=== PATIENT | female | born 1965 | race Asian ===

== ENCOUNTER → 2018-07-06 12:36 | Outpatient (CLI) | payer OTHER, SELFPAY ==
--- NOTE | 2018-07-06 | DI.MG.S_ITS ---
BILATERAL DIGITAL SCREENING MAMMOGRAM 3D/2D WITH CAD: 07/06/2018 CLINICAL: Routine screening. Comparison is made to exams dated: 05/15/2015 mammogram - [facility], 02/21/2013 mammogram, and 06/06/2011 mammogram - [facility]. The tissue of both breasts is heterogeneously dense. This may lower the sensitivity of mammography. Current study was also evaluated with a Computer Aided Detection (CAD) system. No significant masses, calcifications, or other findings are seen in either breast. There has been no significant interval change. IMPRESSION: NEGATIVE There is no mammographic evidence of malignancy. A 1 year screening mammogram is recommended.(07/07/2019) This exam was interpreted at Station ID: [id number]. NOTE: For mammograms, a report in lay terms will be sent to the patient. Approximately 15% of breast malignancies will not be visualized mammographically. In the management of a palpable breast mass, a negative mammogram must not discourage biopsy of a clinically suspicious lesion. Electronically Signed By: Kristy iqbal/lane:07/06/2018 14:17:12 letter sent: Normal Exam ACR BI-RADS Category 1: Negative 3341F
== END ==
PROVIDERS: Family Provider Physician Assistant; PCP Physician Assistant; Visit Provider Family Medicine
DX: Z12.31 Encounter for screening mammogram for malignant neoplasm of breast (principal)
CPT/HCPCS: 77063; 77067

== ENCOUNTER → 2019-12-13 11:16 | Outpatient (CLI) | payer OTHER, SELFPAY ==
--- NOTE | 2019-12-13 11:20 | DI.MG.S_ITS ---
BILATERAL DIGITAL SCREENING MAMMOGRAM 3D/2D WITH CAD: 12/13/2019 CLINICAL: Routine screening. Comparison is made to exams dated: 07/06/2018 mammogram, 05/15/2015 mammogram - [facility], and 02/21/2013 mammogram - [facility]. The tissue of both breasts is heterogeneously dense. This may lower the sensitivity of mammography. Current study was also evaluated with a Computer Aided Detection (CAD) system. No significant masses, calcifications, or other findings are seen in either breast. There has been no significant interval change. IMPRESSION: NEGATIVE There is no mammographic evidence of malignancy. A 1 year screening mammogram is recommended. This exam was interpreted at Station ID: [id number]. NOTE: For mammograms, a report in lay terms will be sent to the patient. Approximately 15% of breast malignancies will not be visualized mammographically. In the management of a palpable breast mass, a negative mammogram must not discourage biopsy of a clinically suspicious lesion. Electronically Signed By: Nirav preciado/lane:12/13/2019 14:34:28 letter sent: Normal Exam ACR BI-RADS Category 1: Negative 3341F
--- NOTE | 2019-12-13 11:20 | DI.US.S_ITS ---
PROCEDURE: US THYROID INDICATIONS: ROUTINE SCREENING HYPOTHYROID TECHNIQUE: Real-time scanning was performed of the thyroid gland, with image documentation. COMPARISON: None. FINDINGS: Right: Prior right thyroidectomy Left: Thyroid lobe measures 4.9 x 1.5 x 1.7 cm, and is homogenous in echotexture. Colloid cyst measuring 5 mm. Isthmus: 2.5 mm thick. IMPRESSION: Right thyroidectomy and colloid cyst involving the left thyroid. Dictated by: Eber ZIMMERMAN Interpreted: Lisandra Caldwell MD on 12/13/2019 at 16:49 Approved by: Carlos Preciado M.D. on 12/16/2019 at 15:57
== END ==
PROVIDERS: Family Provider Physician Assistant; PCP Family Medicine; Referring Provider Family Medicine; Visit Provider Family Medicine
DX: Z12.31 Encounter for screening mammogram for malignant neoplasm of breast (principal); Z13.29 Encounter for screening for other suspected endocrine disorder; E04.1 Nontoxic single thyroid nodule; E03.9 Hypothyroidism, unspecified
CPT/HCPCS: 76536; 77063; 77067

== ENCOUNTER → 2020-08-20 08:50 | Outpatient (CLI) | payer OTHER, SELFPAY ==
--- NOTE | 2020-08-20 | DI.US.S_ITS ---
PROCEDURE: US ABDOMEN COMPLETE INDICATIONS: PAIN TECHNIQUE: Real-time scanning was performed of the abdominal and retroperitoneal organs, with image documentation. COMPARISON: None. FINDINGS: Liver: Liver is normal in size. There is an 11 mm echogenic nonvascular focus seen involving the right lobe of the liver. Gallbladder: No findings of gallstones or sludge are seen. The gallbladder wall is not thickened, measuring 3 mm or less. No specific pericholecystic fluid is seen. The sonographic Melgar sign is negative. Biliary ducts: Intrahepatic bile ducts are non-dilated. Extrahepatic bile duct caliber measures 7 mm. Normal is 6-7 mm or less in diameter, or 10 mm or less post-cholecystectomy. Pancreas: Visualized portions of the pancreas are sonographically normal. Spleen: Spleen is normal in size and homogeneous in echotexture. Kidneys: Kidneys are normal in size and echotexture. Right kidney measures 10.1 cm long; left kidney measures 12 cm long. No hydronephrosis or nephrolithiasis. No solid masses. The renal cortex measures within normal limits for thickness. Aorta: Visualized aorta is normal in caliber at less than 3 cm. Iliacs: Proximal common iliac arteries are normal in caliber at less than 2.5 cm. IVC: Intrahepatic inferior vena cava is patent. Miscellaneous: No free abdominal fluid. IMPRESSION: No imaging explanation is found for this patient's presenting symptoms. The gallbladder demonstrates a normal sonographic appearance. No biliary dilatation is seen. 11 mm presumed liver hemangioma incidentally noted. Dictated by: Jak Alonzo M.D. on 08/20/2020 at 10:25 Approved by: Jak Alonzo M.D. on 08/20/2020 at 10:26
== END ==
PROVIDERS: Family Provider Physician Assistant; PCP Family Medicine; Referring Provider Family Medicine; Visit Provider Family Medicine
DX: R10.9 Unspecified abdominal pain (principal)
CPT/HCPCS: 76700

== ENCOUNTER → 2020-09-22 16:25 | Outpatient (CLI) | payer OTHER, SELFPAY ==
[2020-09-22 17:14] LABS: Add Manual Diff / Slide Review NO; Basophils Absolute Auto 0 /uL (0-100); Basophils Percent Auto 0.4 % (0-2); Eosinophils Absolute Auto 100 /uL (0-450); Hematocrit 42.2 % (36-46); Hemoglobin 13.9 g/dL (12.0-16.0); Lymphocytes Absolute Auto 3100 /uL (1100-4500); Lymphocytes Percent Auto 41.4 % (25-40); Mean Corpuscular Hemoglobin 30.7 PG (26-34); Mean Corpuscular Volume 93.1 fL (80-100); Monocytes Absolute Auto 500 /uL (0-900); Monocytes Percent Auto 6.5 % (3-14); Neutrophils Absolute Auto 3800 /uL (1500-7000); Neutrophils Percent Auto 50.7 % (50-75); Platelet Count 280 X10^3/uL (150-400); Red Blood Cell Count 4.53 X10^6/uL (4.0-5.2); Red Cell Distribution Width 14.2 % (11.6-14.8); White Blood Cell Count 7.5 X10^3/uL (4.5-11.0)
[2020-09-22 17:26] LABS: Hemoglobin A1C% w Est Avg Glu 6.3 % (4.0-6.0)
[2020-09-22 17:31] LABS: Alanine Aminotransferase 37 IU/L (<35); Albumin 4.6 g/dL (3.5-5.0); Albumin Globulin Ratio 1.3 (1.0-2.8); Alkaline Phosphatase 82 U/L (38-126); Amylase 97 U/L (30-110); Aspartate Aminotransferase 45 IU/L (14-36); BUN Creatinine Ratio 30.4 (6-22); Bilirubin Total 0.3 mg/dL (0.2-1.3); Blood Urea Nitrogen 24 mg/dL (7-17); Calcium 9.3 mg/dL (8.4-10.2); Carbon Dioxide 34 mmol/L (22-32); Chloride 99 mmol/L (98-107); Estimated Glomerular Filt Rate > 60.0 mL/min (>60); Globulin 3.5 g/dL (1.7-4.1); Glucose 110 mg/dL (70-100); HEMOLYSIS < 15 (0-50); Lipase 148 U/L (23-300); Potassium 3.9 mmol/L (3.4-5.1); Sodium 138 mmol/L (137-145); Total Protein 8.1 g/dL (6.3-8.2)
[2020-09-22 17:33] LABS: C-Reactive Protein Quant < 0.5 mg/dL (<1.0)
[2020-09-22 17:51] LABS: Free T4, Direct Thyroxine 0.44 ng/dL (0.78-2.19)
== END ==
PROVIDERS: Family Provider Physician Assistant; PCP Family Medicine; Referring Provider Family Medicine; Visit Provider Family Medicine
DX: R19.7 Diarrhea, unspecified (principal); R10.9 Unspecified abdominal pain
CPT/HCPCS: 36415; 80053; 82150; 83036; 83690; 84439; 84443; 85025; 86140

== ENCOUNTER → 2020-10-29 13:24 | Outpatient (CLI) | payer OTHER, SELFPAY ==
[2020-10-29 15:59] LABS: COVID19 -Nasal RAPID Negative (Negative)
== END ==
PROVIDERS: Family Provider Physician Assistant; PCP Family Medicine; Visit Provider Surgery
DX: Z20.822 Contact with and (suspected) exposure to COVID-19 (principal); Z01.812 Encounter for preprocedural laboratory examination
CPT/HCPCS: 87635; C9803

== ENCOUNTER 2020-10-30 08:04 | Day surgery (SDC) | payer OTHER, SELFPAY ==
[2020-10-30] MEDS: SODIUM CHLORIDE 0.9% 1,000 ML 200 ML IV (08:18)
[2020-10-30 08:29] VITALS: BP 132/74; PULSE 63; RESP 13; TEMP 36.9; O2SAT 99; BMI 23.8
--- NOTE | 2020-10-30 09:23 | PM.HP.1 ---
History of Present Illness History of Present Illness Date Patient Seen: 10/30/20 Time Patient Seen: 09:23 Chief complaint: SCREENING COLONOSCOPY Narrative: This is a 55-year-old woman with chronic diarrhea, with never had a colonoscopy before. She denies any melena, hematochezia. She does have some crampy abdominal pain bloating. She denies any personal or family history of colon polyps or colon cancers. ROS: Positive for constipation, nausea, bloating, cramping, diarrhea. Thirteen system review is otherwise negative other than as mentioned below and in HPI. PE: GENERAL: Well groomed and cooperative. Appears stated age. Answers questions promptly and appropriately. Vital signs noted. HENT: Normocephalic, atraumatic. Hearing intact. EYES: Conjunctiva pink, sclera white, no periorbital swelling. CARDIOVASCULAR: Regular rate. No pedal edema. RESPIRATORY: Non-tachypneic, breathing comfortably on room air. GASTROINTESTINAL: Abdomen soft and non-distended GENITALURINARY: No flank tenderness. MUSCULOSKELETAL: Equal tone and mass bilaterally. SKIN: Warm, dry, soft, appropriate color for ethnicity. No other lesions, rashes, or wounds. NEURO: Alert and Oriented X 3. No gross sensory deficits, or cognitive issues. PSYCH: Appropriate affect and mood. Patient History Medical History Hypothyroidism Shoulder pain Stomach pain Wears dentures Wears glasses Family & Social History Social History: household members spouse Tobacco & Substance use: Smoking Status Never smoker alcohol intake current alcohol intake frequency holiday/special occasion Substance Use Type does not use Meds Home Medications and Allergies Home Medications Medication Instructions Recorded Confirmed Type levothyroxine 25 mcg PO DAILY 10/30/20 10/30/20 History omeprazole 40 mg PO DAILY 10/30/20 10/30/20 History Allergies Allergy/AdvReac Type Severity Reaction Status Date / Time cephalexin Allergy Intermediate Rash Verified 10/30/20 08:19 Exam Vital Signs (past 8 hours): - 10/30/20 08:29 Temperature 98.4 F Pulse Rate 63 Respiratory Rate 13 Blood Pressure 132/74 Pulse Oximetry 99 Oxygen Delivery Method Room Air Assessment & Plan Assessment and plan (1) Abdominal pain: Status: Acute (2) Change in bowel habits: Status: Acute (3) At average risk for colon cancer: Status: Acute Assessment & Plan narrative: Risks and benefits of screening colonoscopy and possible polypectomy were discussed with the patient including risk of bleeding, perforation, need for additional procedures, risks of anesthesia. The patient desires to proceed with the colonoscopy procedure. COVID-19 COVID-19 status: Negative Result date/Date tested (Pos, Neg/Pending): 10/29/20 Time Spent With Patient Time with patient: 15-24 minutes Quality VTE Deep Vein Thrombosis/Pulmonary Embolism Present on Admission: No
--- NOTE | 2020-10-30 09:27 | P.OP.ENDO_ITS ---
Operative Date/Time/Diagnoses Date of procedure: 10/30/20 Time of procedure: 09:27 Pre-op diagnosis: Bloating, cramping, abdominal pain, change in bowel habit, never had a screening colonoscopy Post-op diagnosis: other (Extensive diverticulosis from the sigmoid colon to the cecum, with some impacted stool within the diverticula. No polyps. No signs of active diverticulitis) Procedure & Clinicians Study performed: Colonoscopy Procedural sedation performed by the endoscopist Indications: Crampy abdominal pain, change in bowel habit Surgeon: Ginna Charles Procedure Notes SCOAP/Timeout: Performed Procedure in detail: The patient was brought to the room and placed in left lateral decubitus position with all bony prominences padded. A time-out was performed and then the patient was given procedural sedation starting with 4 mg of Versed and 100 mcg of fentanyl. Vitals were monitored throughout the procedure and remained stable. Once adequately sedated, the procedure was begun. A rectal exam was performed revealing no abnormalities. The colonoscope was then introduced to the rectum and advanced to the cecum in the usual fashion. The cecum was identified by the appendiceal orifice, the mucosal tri- fold, and the ileocecal valve. The prep was adequate. The scope was then retracted while rotating side to side and examining each mucosal fold. The patient had extensive Diverticulosis from the cecum to the rectosigmoid junction, with many diverticula found to be impacted with stool. At the conclusion of the procedure retroflexion was performed and small grade 1-2 internal hemorrhoids without stigmata of bleeding were seen. The scope was then withdrawn from the rectum the procedure was concluded. The patient tolerated the procedure well and was transferred to the PACU in stable condition. Scope withdrawal time: 8 Sedation minutes: 15 Findings: diverticulosis (Extensive, with impacted stool in many diverticula) Specimen(s): none sent Complications: none Impression: This patient needs a daily fiber supplement Post-procedure Recommendations: Colonscopy in 5 years Follow up: as needed (The patient verbalized her expectation that she would have an EGD and colonoscopy today. She was not referred for EGD, or scheduled for that. I told the patient that she would need to come in to clinic for discussion and evaluation prior to EGD, if EGD is desired by the patient and her PCP.) Disposition: PACU
[2020-10-30] MEDS: fentaNYL 250 MCG/5 ML INJ IV (09:30)
[2020-10-30] MEDS: MIDAZOLAM 5 MG/5 ML VIAL IV (09:33)
[2020-10-30 09:49] VITALS: BP 107/51; PULSE 56; RESP 12; TEMP 36.3; O2SAT 97
[2020-10-30 09:54] VITALS: BP 94/44; PULSE 54; RESP 16; O2SAT 98
[2020-10-30 09:59] VITALS: BP 98/47; PULSE 53; RESP 14; O2SAT 97
[2020-10-30 10:05] VITALS: BP 132/51; PULSE 67; RESP 16; O2SAT 99
[2020-10-30 10:10] VITALS: BP 118/60; PULSE 64; RESP 16; TEMP 36.3; O2SAT 100
== END 2020-10-30 10:20 | disposition home or self-care (01) ==
PROVIDERS: Family Provider Physician Assistant; PCP Family Medicine; Referring Provider Family Medicine; Visit Provider Surgery
PROC: 0DJD8ZZ Inspection of Lower Intestinal Tract, Via Natural or Artificial Opening Endoscopic (ICD-10-PCS; CPT 45378; principal; 2020-10-30 09:15)
DX: R10.9 Unspecified abdominal pain (principal); R19.4 Change in bowel habit; R14.0 Abdominal distension (gaseous); K57.30 Diverticulosis of large intestine without perforation or abscess without bleeding; K64.0 First degree hemorrhoids
CPT/HCPCS: 45378; 99152; J2250; J3010

== ENCOUNTER 2020-10-31 13:57 | Emergency (ER) | payer OTHER, SELFPAY ==
[2020-10-31] VITALS (8 sets, daily range): BP systolic 133–215; BP diastolic 63–109; PULSE 80–110; RESP 16–18; TEMP 37.3; O2SAT 96–100; BMI 23.8
--- NOTE | 2020-10-31 14:16 | DI.CT.S_ITS ---
PROCEDURE: CT ABDOMEN PELVIS W CON INDICATIONS: LUQ, lower diffuse abd pain post colonoscopy TECHNIQUE: After the administration of intravenous contrast, 5 mm thick sections acquired from the diaphragm to the symphysis. 5 mm coronal and sagittal reformats were acquired. For radiation dose reduction, the following was used: automated exposure control, adjustment of mA and/or kV according to patient size. COMPARISON: [facility], , ABDOMEN COMPLETE, 08/20/2020, 9:07. FINDINGS: Image quality: Excellent. ABDOMEN: Lung bases: Lung bases are clear. Heart size is normal. Solid organs: Liver is normal in size and enhancement. Gallbladder is decompressed, otherwise unremarkable. Biliary system is non dilated. Pancreas enhances normally. Spleen is normal in size and enhancement. No adrenal nodules. Kidneys demonstrate normal size and enhancement, without hydronephrosis. Peritoneum and bowel: Stomach and small bowel are unremarkable. Neck is is normal. No evidence of obstructing. Multiple left-sided diverticula. There is subtle inflammation along the left pericolic gutter adjacent to multiple diverticula. No significant wall thickening. No ascites or pneumoperitoneum. Nodes and vessels: No retroperitoneal or mesenteric adenopathy by size criteria. Aorta and inferior vena cava are normal in size. Miscellaneous: No ventral hernias. PELVIS: Genitourinary: Bladder wall thickness is normal. Miscellaneous: No inguinal hernias or adenopathy. Bones: No suspicious bony lesions. No vertebral body compression fractures. IMPRESSION: Sigmoid diverticula. Trace amount of inflammation along the left pericolic gutter suggestive of early diverticulitis. No evidence of complication. Dictated by: Germain Elmore D.O. on 10/31/2020 at 14:36 Approved by: Germain Elmore D.O. on 10/31/2020 at 14:41
[2020-10-31] MEDS: SODIUM CHLORIDE 0.9% 1,000 ML 1000 ML IV (14:23)
--- NOTE | 2020-10-31 14:30 | ED.ABDPAIN ---
HPI - Abdominal Pain <BARB Holly - Last Filed: 10/31/20 16:02> General Chief Complaint: Abdominal Pain Stated Complaint: pain on left side of stomach/ Time Seen by Provider: 10/31/20 14:03 Source: patient Mode of arrival: Ambulatory History of Present Illness HPI narrative: 55yo female presents to the emergency department for abdominal pain and 2 episodes of vomiting that started a few hours ago. She had a colonoscopy yesterday with Dr. Charles, patient reports this was ordered by her doctor for intermittent abdominal pain with diarrhea alternating with constipation for approximately month. Patient felt fine this morning, was in the injury. However few hours ago she developed left upper quadrant and diffuse lower abdominal pain was 2 episodes of vomiting. She states this pain is different from her previous pain. She does not feel nauseated at this time. She denies any blood in vomit, denies diarrhea. Patient denies any chest pain, shortness of breath, fevers, cough, or any other concerns. Related Data Home Medications Medication Instructions Recorded Confirmed levothyroxine 25 mcg PO DAILY 10/30/20 10/30/20 omeprazole 40 mg PO DAILY 10/30/20 10/30/20 Previous Rx's Medication Instructions Recorded amoxicillin-pot clavulanate 1 tab PO BID 7 Days #14 tab 10/31/20 [Augmentin] ondansetron 4 mg PO Q6H PRN #14 tab 10/31/20 Allergies Allergy/AdvReac Type Severity Reaction Status Date / Time cephalexin Allergy Intermediate Rash Verified 10/31/20 14:06 Review of Systems <BARB Holly - Last Filed: 10/31/20 16:02> Review of Systems Narrative: REVIEW OF SYSTEMS: GENERAL: Denies fever. HENT: No head trauma. CARDIOVASCULAR: No chest pain. RESPIRATORY: No shortness of breath or cough. GASTROINTESTINAL: Complains of abdominal pain, see HPI GENITOURINARY: No flank pain. MUSCULOSKELETAL: No pain, weakness, or trauma. INTEGUMENTARY: No rash. Patient History <BARB Holly - Last Filed: 10/31/20 16:02> Medical History Hypothyroidism Shoulder pain Stomach pain Wears dentures Wears glasses Social History household members: spouse Smoking Status: Never smoker alcohol intake: current Smoking Status: Never smoker alcohol intake frequency: holidays/special occasions only Substance Use Type: does not use Exam <BARB Holly - Last Filed: 10/31/20 16:02> Initial Vital Signs Initial Vital Signs: Vital Signs Temperature 99.1 F 10/31/20 14:04 Pulse Rate 109 H 10/31/20 14:04 Respiratory Rate 16 10/31/20 14:04 Blood Pressure 215/109 H 10/31/20 14:04 Pulse Oximetry 100 10/31/20 14:04 PHYSICAL EXAMINATION: GENERAL: Awake and alert. HENT: Normocephalic, atraumatic. Hearing intact. Oral mucosa is pink and moist. EYES: Conjunctiva pink, sclera white, no periorbital swelling. CARDIOVASCULAR: S1 and S2 sounds normal. Regular rate and rhythm, no murmurs, clicks, or bruits. No pedal edema. RESPIRATORY: Normal respiratory rate, trachea midline, airway patent. No stridor, nasal flaring or accessory muscle use. Lungs are clear in all moe without wheeze, rhonchi, or crackles. GASTROINTESTINAL: Bowel sounds normoactive. Abdomen soft, tenderness to left upper quadrant and lower right and left quadrants. No organomegaly, no palpable masses. MUSCULOSKELETAL: Normal gait and coordination. Equal tone and mass bilaterally. EXTREMITIES: CMS intact. SKIN: Warm, dry, soft, appropriate color for ethnicity. No lesions, rashes, or wounds to visualized areas. NEURO: Alert and Oriented X 3. Good coordination. No ataxia, or sensory deficits, or cognitive issues. PSYCH: Appropriate affect and mood. <Pancho Larson DO - Last Filed: 10/31/20 16:14> Initial Vital Signs Initial Vital Signs: Vital Signs Temperature 99.1 F 10/31/20 14:04 Pulse Rate 109 H 10/31/20 14:04 Respiratory Rate 16 10/31/20 14:04 Blood Pressure 215/109 H 10/31/20 14:04 Pulse Oximetry 100 10/31/20 14:04 Scores <BARB Holly - Last Filed: 10/31/20 16:02> qSOFA Altered Mental Status (GCS <15): No Respiratory rate greater than/equal to 22: No Systolic blood pressure less than or equal to 100: No qSOFA Total: 0 0-1 Not High Risk 1-3 High risk Course <BARB Holly - Last Filed: 10/31/20 16:02> Orders Ordered: ED Orders 10/31/20 14:10 Complete Blood Count AUTO DIFF Stat Comprehensive Metabolic Panel Stat Lactate (Lactic Acid) Stat Lipase Stat Procalcitonin Stat 10/31/20 14:16 CT abdomen pelvis w con Stat Discontinued Medications Sodium Chloride (Normal Saline 0.9%) 1,000 mls @ 1,000 mls/hr IV BOLUS ONE Stop: 10/31/20 15:15 Last Infusion: 10/31/20 15:43 Dose: 0 mls/hr Documented by: Admin: 10/31/20 14:23 Dose: 1,000 mls/hr Documented by: MMINOR Consultations Consultation #1: Patient staffed with Dr. Larson discussed test, tests results, and plan of care. Vital Signs Vital signs: Vital Signs - 8 hr 10/31/20 14:04 10/31/20 14:29 10/31/20 14:30 Temperature 99.1 F Pulse Rate 109 H 102 H Respiratory Rate 16 18 Blood Pressure 215/109 H 195/93 H Pulse Oximetry 100 100 100 10/31/20 15:05 10/31/20 15:06 10/31/20 15:30 Temperature Pulse Rate 110 H 99 H 90 Respiratory Rate 16 18 Blood Pressure 165/77 H 143/65 H Pulse Oximetry 96 99 97 10/31/20 15:42 10/31/20 16:00 Temperature Pulse Rate 88 80 Respiratory Rate 16 16 Blood Pressure 146/67 H 133/63 Pulse Oximetry 98 97 <Pancho Larson DO - Last Filed: 10/31/20 16:14> Orders Ordered: ED Orders 10/31/20 14:10 Complete Blood Count AUTO DIFF Stat Comprehensive Metabolic Panel Stat Lactate (Lactic Acid) Stat Lipase Stat Procalcitonin Stat 10/31/20 14:16 CT abdomen pelvis w con Stat Discontinued Medications Sodium Chloride (Normal Saline 0.9%) 1,000 mls @ 1,000 mls/hr IV BOLUS ONE Stop: 10/31/20 15:15 Last Infusion: 10/31/20 15:43 Dose: 0 mls/hr Documented by: Admin: 10/31/20 14:23 Dose: 1,000 mls/hr Documented by: MMINOR Vital Signs Vital signs: Vital Signs - 8 hr 10/31/20 14:04 10/31/20 14:29 10/31/20 14:30 Temperature 99.1 F Pulse Rate 109 H 102 H Respiratory Rate 16 18 Blood Pressure 215/109 H 195/93 H Pulse Oximetry 100 100 100 10/31/20 15:05 10/31/20 15:06 10/31/20 15:30 Temperature Pulse Rate 110 H 99 H 90 Respiratory Rate 16 18 Blood Pressure 165/77 H 143/65 H Pulse Oximetry 96 99 97 10/31/20 15:42 10/31/20 16:00 Temperature Pulse Rate 88 80 Respiratory Rate 16 16 Blood Pressure 146/67 H 133/63 Pulse Oximetry 98 97 MDM - Abdominal Pain <BARB Holly - Last Filed: 10/31/20 16:02> Medical Records Attestation: I reviewed the patient's medical records. Lab Data Attestation: I reviewed the patient's lab results. Result diagrams: 10/31/20 14:10 10/31/20 14:10 Labs: Lab Results 10/31/20 10/31/20 10/31/20 Range/Units 14:10 14:10 14:10 WBC 8.4 (4.5-11.0) X10^3/uL RBC 4.95 (4.0-5.2) X10^6/uL Hgb 15.0 (12.0-16.0) g/dL Hct 45.6 (36-46) % MCV 92.2 (80-100) fL MCH 30.3 (26-34) PG MCHC 32.9 (30-36) % RDW 13.3 (11.6-14.8) % Plt Count 314 (150-400) X10^3/uL Neut % (Auto) 52.6 (50-75) % Lymph % (Auto) 39.8 (25-40) % [place] % (Auto) 5.8 (3-14) % Eos % (Auto) 1.3 L (2-4) % Baso % (Auto) 0.5 (0-2) % Neut # (Auto) 4400 (4706-5418) /uL Lymph # (Auto) 3300 (7972-9552) /uL [place] # (Auto) 500 (0-900) /uL Eos # (Auto) 100 (0-450) /uL Baso # (Auto) 0 (0-100) /uL Sodium 143 (137-145) mmol/L Potassium 3.9 (3.4-5.1) mmol/L Chloride 102 (98-107) mmol/L Carbon Dioxide 33 H (22-32) mmol/L BUN 17 (7-17) mg/dL Creatinine 0.77 (0.52-1.04) mg/dL Estimated GFR > 60.0 (>60) mL/min BUN/Creatinine Ratio 22.1 H (6-22) Glucose 114 H (70-100) mg/dL Lactate (0.7-2.1) mmol/L Calcium 9.6 (8.4-10.2) mg/dL Total Bilirubin 0.2 (0.2-1.3) mg/dL AST 61 H (14-36) IU/L ALT 44 H (<35) IU/L Alkaline Phosphatase 106 (38-126) U/L Total Protein 8.9 H (6.3-8.2) g/dL Albumin 5.0 (3.5-5.0) g/dL Globulin 3.9 (1.7-4.1) g/dL Albumin/Globulin Ratio 1.3 (1.0-2.8) Lipase 194 (23-300) U/L Procalcitonin < 0.05 (<0.5) ng/mL 10/31/20 Range/Units 14:10 WBC (4.5-11.0) X10^3/uL RBC (4.0-5.2) X10^6/uL Hgb (12.0-16.0) g/dL Hct (36-46) % MCV (80-100) fL MCH (26-34) PG MCHC (30-36) % RDW (11.6-14.8) % Plt Count (150-400) X10^3/uL Neut % (Auto) (50-75) % Lymph % (Auto) (25-40) % [place] % (Auto) (3-14) % Eos % (Auto) (2-4) % Baso % (Auto) (0-2) % Neut # (Auto) (5222-3188) /uL Lymph # (Auto) (7889-6552) /uL [place] # (Auto) (0-900) /uL Eos # (Auto) (0-450) /uL Baso # (Auto) (0-100) /uL Sodium (137-145) mmol/L Potassium (3.4-5.1) mmol/L Chloride (98-107) mmol/L Carbon Dioxide (22-32) mmol/L BUN (7-17) mg/dL Creatinine (0.52-1.04) mg/dL Estimated GFR (>60) mL/min BUN/Creatinine Ratio (6-22) Glucose (70-100) mg/dL Lactate 2.0 (0.7-2.1) mmol/L Calcium (8.4-10.2) mg/dL Total Bilirubin (0.2-1.3) mg/dL AST (14-36) IU/L ALT (<35) IU/L Alkaline Phosphatase (38-126) U/L Total Protein (6.3-8.2) g/dL Albumin (3.5-5.0) g/dL Globulin (1.7-4.1) g/dL Albumin/Globulin Ratio (1.0-2.8) Lipase (23-300) U/L Procalcitonin (<0.5) ng/mL Point of care testing: Urine Dip Bedside Urine Glucose Negative Bedside Urine Bilirubin - Negative Bedside Urine Ketone - Negative Urine Specific [place] 1.010 Bedside Urine Occult Blood - Negative Bedside Urine pH 6 Bedside Urine Protein - Negative Bedside Urine Urobilinogen - Negative Bedside Urine Nitrite - Negative Bedside Urine Leukocytes - Negative Esterase Imaging Data CT scan - abdomen/pelvis: Radiologist's Impression: [address] [id number] Scan ReportSigned Patient: Wendy Garcia OMR#: [id number]: [id number]:[id number]/Sex: 55 / FDate of Service: 10/31/20Loc: EDAccession Number: [id number] Procedure: CT abdomen pelvis w con Ordering Provider: Brigida Davis PROCEDURE: CT ABDOMEN PELVIS W CON INDICATIONS: LUQ, lower diffuse abd pain post colonoscopy TECHNIQUE: After the administration of intravenous contrast, 5 mm thick sections acquired from the diaphragm to the symphysis. 5 mm coronal and sagittal reformats were acquired. For radiation dose reduction, the following was used: automated exposure control, adjustment of mA and/or kV according to patient size. COMPARISON: [facility], US, US ABDOMEN COMPLETE, 08/20/2020, 9:07. FINDINGS: Image quality: Excellent. ABDOMEN: Lung bases: Lung bases are clear. Heart size is normal. Solid organs: Liver is normal in size and enhancement. Gallbladder is decompressed, otherwise unremarkable. Biliary system is non dilated. Pancreas enhances normally. Spleen is normal in size and enhancement. No adrenal nodules. Kidneys demonstrate normal size and enhancement, without hydronephrosis. Peritoneum and bowel: Stomach and small bowel are unremarkable. Neck is is normal. No evidence of obstructing. Multiple left-sided diverticula. There is subtle inflammation along the left pericolic gutter adjacent to multiple diverticula. No significant wall thickening. No ascites or pneumoperitoneum. Nodes and vessels: No retroperitoneal or mesenteric adenopathy by size criteria. Aorta and inferior vena cava are normal in size. Miscellaneous: No ventral hernias. PELVIS: Genitourinary: Bladder wall thickness is normal. Miscellaneous: No inguinal hernias or adenopathy. Bones: No suspicious bony lesions. No vertebral body compression fractures. IMPRESSION: Sigmoid diverticula. Trace amount of inflammation along the left pericolic gutter suggestive of early diverticulitis. No evidence of complication. Dictated by: Germain Elmore D.O. on 10/31/2020 at 14:36 Approved by: Germain Elmore D.O. on 10/31/2020 at 14:41 MDM Narrative Medical decision making narrative: 55yo female presents to the emergency department for abdominal pain and vomiting post colonoscopy. Patient was tender on examination, CT was ordered to rule out perforation. No suspicious findings on CT that would suggest perforation. However, there were some concerns for diverticulitis seen with imaging. Patient is afebrile, tachycardia was reduced with a fluid bolus. She is well-appearing, and a candidate for outpatient treatment. No concerns for sepsis, lactate within normal limits, procalcitonin within normal limits. White blood cell count within normal limits. Slightly elevated liver enzymes which appears consistent with prior labs, no right upper quadrant abdominal pain and therefore less suspicion for gallbladder etiology. Patient was prescribed a course of Augmentin. Patient states she is allergic to cephalexin but has taken amoxicillin without any issues multiple times in the past. She was encouraged to follow up with PCP in the next 1-2 weeks for further evaluation. She agreed to plan of care verbalized understanding. <Pancho Larson, DO - Last Filed: 10/31/20 16:14> Lab Data Labs: Lab Results 10/31/20 10/31/20 10/31/20 Range/Units 14:10 14:10 14:10 WBC 8.4 (4.5-11.0) X10^3/uL RBC 4.95 (4.0-5.2) X10^6/uL Hgb 15.0 (12.0-16.0) g/dL Hct 45.6 (36-46) % MCV 92.2 (80-100) fL MCH 30.3 (26-34) PG MCHC 32.9 (30-36) % RDW 13.3 (11.6-14.8) % Plt Count 314 (150-400) X10^3/uL Neut % (Auto) 52.6 (50-75) % Lymph % (Auto) 39.8 (25-40) % [place] % (Auto) 5.8 (3-14) % Eos % (Auto) 1.3 L (2-4) % Baso % (Auto) 0.5 (0-2) % Neut # (Auto) 4400 (8038-3872) /uL Lymph # (Auto) 3300 (1619-6660) /uL [place] # (Auto) 500 (0-900) /uL Eos # (Auto) 100 (0-450) /uL Baso # (Auto) 0 (0-100) /uL Sodium 143 (137-145) mmol/L Potassium 3.9 (3.4-5.1) mmol/L Chloride 102 (98-107) mmol/L Carbon Dioxide 33 H (22-32) mmol/L BUN 17 (7-17) mg/dL Creatinine 0.77 (0.52-1.04) mg/dL Estimated GFR > 60.0 (>60) mL/min BUN/Creatinine Ratio 22.1 H (6-22) Glucose 114 H (70-100) mg/dL Lactate (0.7-2.1) mmol/L Calcium 9.6 (8.4-10.2) mg/dL Total Bilirubin 0.2 (0.2-1.3) mg/dL AST 61 H (14-36) IU/L ALT 44 H (<35) IU/L Alkaline Phosphatase 106 (38-126) U/L Total Protein 8.9 H (6.3-8.2) g/dL Albumin 5.0 (3.5-5.0) g/dL Globulin 3.9 (1.7-4.1) g/dL Albumin/Globulin Ratio 1.3 (1.0-2.8) Lipase 194 (23-300) U/L Procalcitonin < 0.05 (<0.5) ng/mL 10/31/20 Range/Units 14:10 WBC (4.5-11.0) X10^3/uL RBC (4.0-5.2) X10^6/uL Hgb (12.0-16.0) g/dL Hct (36-46) % MCV (80-100) fL MCH (26-34) PG MCHC (30-36) % RDW (11.6-14.8) % Plt Count (150-400) X10^3/uL Neut % (Auto) (50-75) % Lymph % (Auto) (25-40) % [place] % (Auto) (3-14) % Eos % (Auto) (2-4) % Baso % (Auto) (0-2) % Neut # (Auto) (6234-6092) /uL Lymph # (Auto) (1273-3983) /uL [place] # (Auto) (0-900) /uL Eos # (Auto) (0-450) /uL Baso # (Auto) (0-100) /uL Sodium (137-145) mmol/L Potassium (3.4-5.1) mmol/L Chloride (98-107) mmol/L Carbon Dioxide (22-32) mmol/L BUN (7-17) mg/dL Creatinine (0.52-1.04) mg/dL Estimated GFR (>60) mL/min BUN/Creatinine Ratio (6-22) Glucose (70-100) mg/dL Lactate 2.0 (0.7-2.1) mmol/L Calcium (8.4-10.2) mg/dL Total Bilirubin (0.2-1.3) mg/dL AST (14-36) IU/L ALT (<35) IU/L Alkaline Phosphatase (38-126) U/L Total Protein (6.3-8.2) g/dL Albumin (3.5-5.0) g/dL Globulin (1.7-4.1) g/dL Albumin/Globulin Ratio (1.0-2.8) Lipase (23-300) U/L Procalcitonin (<0.5) ng/mL Point of care testing: Urine Dip Bedside Urine Glucose Negative Bedside Urine Bilirubin - Negative Bedside Urine Ketone - Negative Urine Specific [place] 1.010 Bedside Urine Occult Blood - Negative Bedside Urine pH 6 Bedside Urine Protein - Negative Bedside Urine Urobilinogen - Negative Bedside Urine Nitrite - Negative Bedside Urine Leukocytes - Negative Esterase Discharge Plan Departure Patient Disposition: Home Clinical Impression: Diverticulitis Instructions: DI for Diverticulitis Activity Restrictions/Additional Instructions: Thank you for entrusting me with your care today. As discussed, your laboratory work is non-remarkable but your CT shows diverticulitis which is an infection in the pockets of your large intestine. I placed you on antibiotics and given you medication to help with nausea. These prescriptions were sent to [facility] in [place]. Please drink plenty of fluids. Follow-up with your primary care provider in the next 1-2 weeks for further evaluation. Return emergency department for any new or worsening symptoms such as increased fevers, uncontrollable vomiting, severe pain, or any other concerns. Prescriptions: New ondansetron 4 mg tablet,disintegrating 4 mg PO Q6H PRN (Reason: nausea and vomiting) Qty: 14 RF: 0 amoxicillin-pot clavulanate [Augmentin] 875-125 mg tablet 1 tab PO BID 7 Days Qty: 14 RF: 0 No Action omeprazole 40 mg Capsule,Delayed Release(Dr/Ec) 40 mg PO DAILY RF: 0 levothyroxine 25 mcg Tablet 25 mcg PO DAILY RF: 0 Referrals: Allegra Lucas MD [Primary Care Provider] - <Pancho Larson DO - Last Filed: 10/31/20 16:14> Cosign ED Attending Cosignature Attestation: Dr Larson Co-Sign Statement: I was available for consultation during this patient's emergency department visit. This chart is signed by myself for administrative purposes only. I did not have direct contact with this patient during this visit. They were seen independently by the APC.
[2020-10-31 14:34] LABS: Add Manual Diff / Slide Review NO; Basophils Absolute Auto 0 /uL (0-100); Basophils Percent Auto 0.5 % (0-2); Eosinophils Absolute Auto 100 /uL (0-450); Eosinophils Percent Auto 1.3 % (2-4); Hematocrit 45.6 % (36-46); Lymphocytes Absolute Auto 3300 /uL (1100-4500); Lymphocytes Percent Auto 39.8 % (25-40); Mean Corpuscular HGB Conc 32.9 % (30-36); Mean Corpuscular Hemoglobin 30.3 PG (26-34); Mean Corpuscular Volume 92.2 fL (80-100); Monocytes Absolute Auto 500 /uL (0-900); Monocytes Percent Auto 5.8 % (3-14); Neutrophils Absolute Auto 4400 /uL (1500-7000); Neutrophils Percent Auto 52.6 % (50-75); Platelet Count 314 X10^3/uL (150-400); Red Blood Cell Count 4.95 X10^6/uL (4.0-5.2); Red Cell Distribution Width 13.3 % (11.6-14.8); White Blood Cell Count 8.4 X10^3/uL (4.5-11.0)
[2020-10-31 14:39] LABS: Alanine Aminotransferase 44 IU/L (<35); Albumin Globulin Ratio 1.3 (1.0-2.8); Alkaline Phosphatase 106 U/L (38-126); Aspartate Aminotransferase 61 IU/L (14-36); BUN Creatinine Ratio 22.1 (6-22); Bilirubin Total 0.2 mg/dL (0.2-1.3); Blood Urea Nitrogen 17 mg/dL (7-17); Calcium 9.6 mg/dL (8.4-10.2); Carbon Dioxide 33 mmol/L (22-32); Chloride 102 mmol/L (98-107); Estimated Glomerular Filt Rate > 60.0 mL/min (>60); Globulin 3.9 g/dL (1.7-4.1); Glucose 114 mg/dL (70-100); HEMOLYSIS 16 (0-50); Lipase 194 U/L (23-300); Potassium 3.9 mmol/L (3.4-5.1); Sodium 143 mmol/L (137-145); Total Protein 8.9 g/dL (6.3-8.2)
[2020-10-31 14:57] LABS: Procalcitonin < 0.05 ng/mL (<0.5)
[2020-10-31 16:21] LABS: Reflexed Lactate in 2 Hours Y
== END 2020-10-31 16:15 | disposition home or self-care (01) ==
PROVIDERS: Emergency Provider Nurse Practitioner; Family Provider Physician Assistant; PCP Family Medicine
DX: K57.92 Diverticulitis of intestine, part unspecified, without perforation or abscess without bleeding (principal); R11.2 Nausea with vomiting, unspecified; E03.9 Hypothyroidism, unspecified
CPT/HCPCS: 36415; 74177; 80053; 81003; 83605; 83690; 84145; 85025; 96360; 99283; 99284

== ENCOUNTER → 2020-11-06 16:36 | Outpatient (CLI) | payer OTHER, SELFPAY ==
[2020-11-06 18:06] LABS: Add Manual Diff / Slide Review NO; Basophils Absolute Auto 0 /uL (0-100); Basophils Percent Auto 0.5 % (0-2); Eosinophils Absolute Auto 100 /uL (0-450); Eosinophils Percent Auto 1.5 % (2-4); Hematocrit 40.4 % (36-46); Hemoglobin 13.4 g/dL (12.0-16.0); Lymphocytes Absolute Auto 2800 /uL (1100-4500); Lymphocytes Percent Auto 44.7 % (25-40); Mean Corpuscular Hemoglobin 30.5 PG (26-34); Mean Corpuscular Volume 92.4 fL (80-100); Monocytes Absolute Auto 400 /uL (0-900); Neutrophils Absolute Auto 2900 /uL (1500-7000); Neutrophils Percent Auto 46.3 % (50-75); Platelet Count 262 X10^3/uL (150-400); Red Blood Cell Count 4.38 X10^6/uL (4.0-5.2); Red Cell Distribution Width 13.4 % (11.6-14.8); White Blood Cell Count 6.4 X10^3/uL (4.5-11.0)
[2020-11-06 18:26] LABS: Erythrocyte Sedimentation Rate 18 MM/HR (0-20)
[2020-11-06 18:30] LABS: Alanine Aminotransferase 40 IU/L (<35); Albumin 4.3 g/dL (3.5-5.0); Albumin Globulin Ratio 1.5 (1.0-2.8); Alkaline Phosphatase 80 U/L (38-126); Aspartate Aminotransferase 36 IU/L (14-36); BUN Creatinine Ratio 19.4 (6-22); Bilirubin Total 0.3 mg/dL (0.2-1.3); Blood Urea Nitrogen 13 mg/dL (7-17); Calcium 9.1 mg/dL (8.4-10.2); Carbon Dioxide 34 mmol/L (22-32); Chloride 99 mmol/L (98-107); Estimated Glomerular Filt Rate > 60.0 mL/min (>60); Globulin 2.8 g/dL (1.7-4.1); Glucose 102 mg/dL (70-100); HEMOLYSIS < 15 (0-50); Potassium 3.7 mmol/L (3.4-5.1); Sodium 139 mmol/L (137-145); Total Protein 7.1 g/dL (6.3-8.2)
[2020-11-06 18:32] LABS: C-Reactive Protein Quant < 0.5 mg/dL (<1.0)
== END ==
PROVIDERS: Family Provider Physician Assistant; PCP Family Medicine; Referring Provider Family Medicine; Visit Provider Family Medicine
DX: K57.32 Diverticulitis of large intestine without perforation or abscess without bleeding (principal)
CPT/HCPCS: 36415; 80053; 85025; 85651; 86140

== ENCOUNTER → 2020-12-03 16:37 | Outpatient (CLI) | payer OTHER, SELFPAY ==
[2020-12-03 17:20] LABS: Add Manual Diff / Slide Review NO; Basophils Absolute Auto 0 /uL (0-100); Basophils Percent Auto 0.4 % (0-2); Eosinophils Absolute Auto 100 /uL (0-450); Hematocrit 41.8 % (36-46); Hemoglobin 13.7 g/dL (12.0-16.0); Lymphocytes Absolute Auto 2700 /uL (1100-4500); Mean Corpuscular HGB Conc 32.8 % (30-36); Mean Corpuscular Hemoglobin 30.4 PG (26-34); Mean Corpuscular Volume 92.6 fL (80-100); Monocytes Absolute Auto 500 /uL (0-900); Monocytes Percent Auto 7.5 % (3-14); Neutrophils Absolute Auto 3400 /uL (1500-7000); Neutrophils Percent Auto 51.1 % (50-75); Platelet Count 270 X10^3/uL (150-400); Red Blood Cell Count 4.51 X10^6/uL (4.0-5.2); Red Cell Distribution Width 13.6 % (11.6-14.8); White Blood Cell Count 6.7 X10^3/uL (4.5-11.0)
[2020-12-03 17:37] LABS: Alanine Aminotransferase 42 IU/L (<35); Albumin 4.6 g/dL (3.5-5.0); Albumin Globulin Ratio 1.4 (1.0-2.8); Alkaline Phosphatase 81 U/L (38-126); Aspartate Aminotransferase 44 IU/L (14-36); BUN Creatinine Ratio 29.2 (6-22); Bilirubin Total 0.4 mg/dL (0.2-1.3); Blood Urea Nitrogen 19 mg/dL (7-17); Calcium 9.7 mg/dL (8.4-10.2); Carbon Dioxide 33 mmol/L (22-32); Chloride 100 mmol/L (98-107); Estimated Glomerular Filt Rate > 60.0 mL/min (>60); Globulin 3.4 g/dL (1.7-4.1); Glucose 104 mg/dL (70-100); HEMOLYSIS < 15 (0-50); Potassium 4.1 mmol/L (3.4-5.1); Sodium 138 mmol/L (137-145)
[2020-12-03 17:39] LABS: C-Reactive Protein Quant < 0.5 mg/dL (<1.0)
[2020-12-03 18:42] LABS: Erythrocyte Sedimentation Rate 12 MM/HR (0-20)
== END ==
PROVIDERS: Family Provider Physician Assistant; PCP Family Medicine; Referring Provider Family Medicine; Visit Provider Family Medicine
DX: R10.9 Unspecified abdominal pain (principal); K57.32 Diverticulitis of large intestine without perforation or abscess without bleeding
CPT/HCPCS: 36415; 80053; 85025; 85651; 86140

== ENCOUNTER → 2021-03-10 07:45 | Outpatient (CLI) | payer OTHER, SELFPAY ==
--- NOTE | 2021-03-10 09:42 | DI.CT.S_ITS ---
PROCEDURE: CT ABDOMEN PELVIS W CON INDICATIONS: Diverticulitis of large intestine TECHNIQUE: After the administration of oral and intravenous contrast, 5 mm thick sections acquired from the diaphragms to the symphysis. 5 mm thick coronal and sagittal reformats were performed. For radiation dose reduction, the following was used: automated exposure control, adjustment of mA and/or kV according to patient size. COMPARISON: [facility], CT, CT ABDOMEN PELVIS W CON, 10/31/2020, 14:39. FINDINGS: Image quality: Excellent. ABDOMEN: Lung bases: Lung bases are clear. Heart size is normal. Solid organs: Liver is normal in size. Suspect hepatic steatosis. Gallbladder is unremarkable. Biliary system is non-dilated. Pancreas enhances normally. Spleen is normal in size and enhancement. No adrenal nodules. Kidneys are normal in size and enhancement, without hydronephrosis. Peritoneum and bowel: Moderate scattered diverticulosis. No acute diverticulitis identified. Previously seen trace pericolic gutter fluid is resolved. No free fluid or air. Normal appendix. No small bowel obstruction. Nodes and vessels: No retroperitoneal or mesenteric adenopathy. Aorta and inferior vena cava are normal in caliber. Mild calcified atherosclerotic plaque. Miscellaneous: No ventral hernias. PELVIS: Genitourinary: Bladder wall thickness is normal. Miscellaneous: No inguinal hernias or adenopathy. Bones: No suspicious bony lesions. Mild degenerative change. No vertebral body compression fractures. IMPRESSION: 1. No acute diverticulitis identified. Moderate diverticulosis. 2. No free fluid. No pneumoperitoneum. No bowel obstruction. Dictated by: Royce Woody M.D. on 03/10/2021 at 9:33 Approved by: Royce Woody M.D. on 03/10/2021 at 9:47
== END ==
PROVIDERS: Family Provider Physician Assistant; PCP Family Medicine; Referring Provider Family Medicine; Visit Provider Family Medicine
DX: R10.9 Unspecified abdominal pain (principal); K57.32 Diverticulitis of large intestine without perforation or abscess without bleeding
CPT/HCPCS: 74177; Q9967

== ENCOUNTER → 2021-03-15 16:40 | Outpatient (CLI) | payer OTHER, SELFPAY ==
[2021-03-15 17:06] LABS: Add Manual Diff / Slide Review NO; Basophils Absolute Auto 0 /uL (0-100); Basophils Percent Auto 0.3 % (0-2); Eosinophils Absolute Auto 100 /uL (0-450); Eosinophils Percent Auto 0.8 % (2-4); Hematocrit 41.3 % (36-46); Hemoglobin 13.8 g/dL (12.0-16.0); Lymphocytes Absolute Auto 3000 /uL (1100-4500); Lymphocytes Percent Auto 27.5 % (25-40); Mean Corpuscular HGB Conc 33.4 % (30-36); Mean Corpuscular Hemoglobin 30.7 PG (26-34); Monocytes Absolute Auto 400 /uL (0-900); Neutrophils Absolute Auto 7500 /uL (1500-7000); Neutrophils Percent Auto 67.4 % (50-75); Platelet Count 291 X10^3/uL (150-400); Red Blood Cell Count 4.48 X10^6/uL (4.0-5.2); Red Cell Distribution Width 14.3 % (11.6-14.8); White Blood Cell Count 11.1 X10^3/uL (4.5-11.0)
[2021-03-15 17:36] LABS: Alanine Aminotransferase 39 IU/L (<35); Albumin 4.7 g/dL (3.5-5.0); Albumin Globulin Ratio 1.3 (1.0-2.8); Alkaline Phosphatase 83 U/L (38-126); Aspartate Aminotransferase 38 IU/L (14-36); BUN Creatinine Ratio 20.2 (6-22); Bilirubin Total 0.2 mg/dL (0.2-1.3); Blood Urea Nitrogen 20 mg/dL (7-17); C-Reactive Protein Quant 0.5 mg/dL (<1.0); Calcium 9.7 mg/dL (8.4-10.2); Carbon Dioxide 31 mmol/L (22-32); Chloride 96 mmol/L (98-107); Globulin 3.5 g/dL (1.7-4.1); Glucose 109 mg/dL (70-100); HEMOLYSIS < 15 (0-50); Lipase 146 U/L (23-300); Potassium 3.7 mmol/L (3.4-5.1); Sodium 138 mmol/L (137-145); Total Protein 8.2 g/dL (6.3-8.2)
== END ==
PROVIDERS: Family Provider Physician Assistant; PCP Family Medicine; Referring Provider Family Medicine; Visit Provider Family Medicine
DX: K57.32 Diverticulitis of large intestine without perforation or abscess without bleeding (principal); R19.7 Diarrhea, unspecified; R10.9 Unspecified abdominal pain
CPT/HCPCS: 36415; 80053; 83690; 85025; 86140

== ENCOUNTER 2021-03-15 22:40 | Emergency (ER) | payer OTHER, SELFPAY ==
[2021-03-15 22:48] VITALS: BP 145/67; PULSE 67; RESP 18; TEMP 36.9; O2SAT 97; BMI 23.3
[2021-03-15 22:59] LABS: Bacteria Urine None Seen
[2021-03-15 23:12] LABS: Add Manual Diff / Slide Review NO; Basophils Absolute Auto 100 /uL (0-100); Basophils Percent Auto 0.5 % (0-2); Eosinophils Absolute Auto 0 /uL (0-450); Eosinophils Percent Auto 0.3 % (2-4); Hematocrit 39.4 % (36-46); Hemoglobin 13.4 g/dL (12.0-16.0); Lymphocytes Absolute Auto 1500 /uL (1100-4500); Lymphocytes Percent Auto 10.1 % (25-40); Mean Corpuscular Hemoglobin 30.8 PG (26-34); Mean Corpuscular Volume 90.6 fL (80-100); Monocytes Absolute Auto 400 /uL (0-900); Monocytes Percent Auto 2.6 % (3-14); Neutrophils Absolute Auto 12900 /uL (1500-7000); Neutrophils Percent Auto 86.5 % (50-75); Platelet Count 292 X10^3/uL (150-400); Red Blood Cell Count 4.35 X10^6/uL (4.0-5.2); Red Cell Distribution Width 13.9 % (11.6-14.8); White Blood Cell Count 14.9 X10^3/uL (4.5-11.0)
[2021-03-15 23:18] LABS: Culture Indicated Urine Specimen Cultured; RBC Urine 0-1/HPF (0-5/HPF); WBC Urine 0-1/HPF (0-5/HPF)
[2021-03-15 23:19] LABS: Alanine Aminotransferase 34 IU/L (<35); Albumin 4.5 g/dL (3.5-5.0); Albumin Globulin Ratio 1.5 (1.0-2.8); Alkaline Phosphatase 74 U/L (38-126); Aspartate Aminotransferase 32 IU/L (14-36); BUN Creatinine Ratio 28.1 (6-22); Bilirubin Total 0.4 mg/dL (0.2-1.3); Blood Urea Nitrogen 18 mg/dL (7-17); Calcium 9.2 mg/dL (8.4-10.2); Carbon Dioxide 28 mmol/L (22-32); Chloride 100 mmol/L (98-107); Estimated Glomerular Filt Rate > 60.0 mL/min (>60); Globulin 3.1 g/dL (1.7-4.1); Glucose 126 mg/dL (70-100); HEMOLYSIS < 15 (0-50); Lipase 91 U/L (23-300); Sodium 137 mmol/L (137-145); Total Protein 7.6 g/dL (6.3-8.2)
[2021-03-15] MEDS: KETOROLAC 30 MG/ML VIAL 15 MG IV (23:29)
--- NOTE | 2021-03-16 01:20 | ED.ABDPAIN ---
HPI - Abdominal Pain General Chief Complaint: Abdominal Pain Stated Complaint: STOMACH PAIN THROWING UP Time Seen by Provider: 03/15/21 23:25 Source: patient and family () Mode of arrival: Ambulatory Limitations: no limitations History of Present Illness HPI narrative: This is a 55-year-old female comes emergency department with complaint of abdominal pain it has been worsening today. Patient states it started about 10:00 a.m. today. She states she has felt chilled. She has not had a fever. She felt nauseated vomited twice. She has been constipated but did have a bowel movement at noon today. She denies any melena or hematochezia. She denies any new urinary symptoms. She states her pain does radiate towards her back. She has a past medical history of hypothyroidism and has had her thyroid removed. She is allergic to cephalexin. Patient states she just completed a prescription for Augmentin on Monday, 3 days ago for diverticulitis. She states she had been improving while taking this. She states she also had a CT a week ago on March 10 which was negative. Patient states she 1st developed diverticulitis she had a colonoscopy the following day had increased abdominal pain had a CT suspicious for diverticulitis and was started on antibiotics. This is her 3rd episode of diverticulitis is October. This is her 3rd round of Augmentin and it has worked for the 1st 2 episodes with a month being asymptomatic in January. Patient has been told to eat a bland diet but has not had any other dietary recommendations made. She is in process of receiving referral to Gastroenterology for further evaluation. No tobacco, occasional alcohol, no illicit. She is accompanied by her and Dr. Lucas is her PCP. Related Data Home Medications Medication Instructions Recorded Confirmed levothyroxine 25 mcg PO DAILY 10/30/20 10/30/20 omeprazole 40 mg PO DAILY 10/30/20 10/30/20 Previous Rx's Medication Instructions Recorded ondansetron 4 mg PO Q6H PRN #14 tab 10/31/20 ciprofloxacin HCl 500 mg PO BID #20 tab 03/16/21 metronidazole [Flagyl] 500 mg PO TID #30 tab 03/16/21 oxycodone 5 mg PO Q6H PRN #10 tab 03/16/21 Allergies Allergy/AdvReac Type Severity Reaction Status Date / Time cephalexin Allergy Intermediate Rash Verified 10/31/20 14:06 Review of Systems Review of Systems ROS Unobtainable: All systems reviewed & are unremarkable except as noted in HPI and below Patient History Medical History Hypothyroidism Shoulder pain Stomach pain Wears dentures Wears glasses Social History household members: spouse Smoking Status: Never smoker alcohol intake: current Smoking Status: Never smoker alcohol intake frequency: holidays/special occasions only Substance Use Type: does not use Exam Narrative Exam Narrative: GENERAL: Alert and oriented x three, well-appearing female in mild to moderate distress. HEENT: Head normocephalic, atraumatic, EOMI, pupils reactive, face symmetric, moist mucous membranes NECK: Supple, full range of motion CARDIOVASCULAR: Regular rate and rhythm without murmurs, rubs or gallops. RESPIRATORY: Breath sounds equal bilaterally, no wheezes rales or rhonchi. ABDOMEN: Soft, positive for generalized tenderness.. Normoactive bowel sounds all 4 quadrants. No guarding or rebound, no rigidity, no mass : No CVA tenderness EXTREMITIES: Normal range of motion, no clubbing or edema. Neurovascularly intact NEUROLOGICAL: Cranial nerves II through XII grossly intact. Moving all extremities SKIN: Warm, dry, no petechiae, no rashes or lesions. Initial Vital Signs Initial Vital Signs: Vital Signs Temperature 98.4 F 03/15/21 22:48 Pulse Rate 67 03/15/21 22:48 Respiratory Rate 18 03/15/21 22:48 Blood Pressure 145/67 H 03/15/21 22:48 Pulse Oximetry 97 03/15/21 22:48 Course Orders Ordered: ED Orders 03/15/21 22:50 Urine Culture Stat Urine Microscopic Stat 03/15/21 22:53 EKG-12 Lead Stat 03/15/21 23:00 Complete Blood Count AUTO DIFF Stat Comprehensive Metabolic Panel Stat Lipase Stat 03/16/21 01:38 CT abdomen pelvis w con Stat Discontinued Medications Ciprofloxacin (Ciprofloxacin 250 Mg Tablet) 500 mg PO NOW ONE Stop: 03/16/21 03:16 Last Admin: 03/16/21 03:26 Dose: 500 mg Documented by: ESNODGRASS Sodium Chloride (Normal Saline 0.9%) 1,000 mls @ 150 mls/hr IV CONT TAMMY Last Infusion: 03/16/21 03:46 Dose: 0 mls/hr Documented by: Admin: 03/16/21 01:46 Dose: 150 mls/hr Documented by: ALBARO Ketorolac Tromethamine (Ketorolac 30 Mg/Ml Vial) 15 mg IV NOW ONE Stop: 03/15/21 23:26 Last Admin: 03/15/21 23:29 Dose: 15 mg Documented by: ALBARO Metronidazole (Metronidazole 500 Mg Tablet) 500 mg PO NOW ONE Stop: 03/16/21 03:22 Last Admin: 03/16/21 03:25 Dose: 500 mg Documented by: ALBARO Morphine Sulfate (Morphine 4 Mg/Ml Inj) 4 mg IV NOW ONE Stop: 03/16/21 01:32 Last Admin: 03/16/21 01:39 Dose: 4 mg Documented by: ALBARO Ondansetron HCl (Ondansetron 4 Mg Odt Prepack) 1 bottle MISC SEEINSTR ONE Stop: 03/16/21 03:30 Last Admin: 03/16/21 03:39 Dose: 1 bottle Documented by: ALBARO Reevaluation(s) Reevaluation #1: Patient pain is improved in department. She denies nausea. CT shows diverticulitis of the cecum with no other significant changes there is no pneumoperitoneum or abscess noted. There is an appendicoliths present but no evidence for acute appendicitis. Reviewed findings with patient. Plan to change her to Cipro and Flagyl from her Augmentin course which she has finished and give oral challenge prior to discharge. Patient feels that she can return home. Given if prepack for Zofran as well as a short course of narcotic pain medication. Patient is asked to follow-up the next 2-3 days for recheck. Return precautions discussed. Time: 03:29 Vital Signs Vital signs: Vital Signs - 8 hr 03/15/21 22:48 03/16/21 01:45 03/16/21 01:47 Temperature 98.4 F Pulse Rate 67 59 L 51 L Respiratory Rate 18 Blood Pressure 145/67 H 139/63 Pulse Oximetry 97 98 97 03/16/21 03:47 Temperature 97.8 F Pulse Rate 52 L Respiratory Rate 18 Blood Pressure 143/68 H Pulse Oximetry 98 MDM - Abdominal Pain Lab Data Attestation: I reviewed the patient's lab results. Result diagrams: 03/15/21 23:00 03/15/21 23:00 Labs: Lab Results 03/15/21 03/15/21 03/15/21 Range/Units 22:50 23:00 23:00 WBC 14.9 H (4.5-11.0) X10^3/uL RBC 4.35 (4.0-5.2) X10^6/uL Hgb 13.4 (12.0-16.0) g/dL Hct 39.4 (36-46) % MCV 90.6 (80-100) fL MCH 30.8 (26-34) PG MCHC 34.0 (30-36) % RDW 13.9 (11.6-14.8) % Plt Count 292 (150-400) X10^3/uL Neut % (Auto) 86.5 H (50-75) % Lymph % (Auto) 10.1 L (25-40) % Whitman % (Auto) 2.6 L (3-14) % Eos % (Auto) 0.3 L (2-4) % Baso % (Auto) 0.5 (0-2) % Neut # (Auto) 63859 H (9024-8933) /uL Lymph # (Auto) 1500 (5509-8626) /uL Whitman # (Auto) 400 (0-900) /uL Eos # (Auto) 0 (0-450) /uL Baso # (Auto) 100 (0-100) /uL Sodium 137 (137-145) mmol/L Potassium 4.0 (3.4-5.1) mmol/L Chloride 100 (98-107) mmol/L Carbon Dioxide 28 (22-32) mmol/L BUN 18 H (7-17) mg/dL Creatinine 0.64 (0.52-1.04) mg/dL Estimated GFR > 60.0 (>60) mL/min BUN/Creatinine Ratio 28.1 H (6-22) Glucose 126 H (70-100) mg/dL Calcium 9.2 (8.4-10.2) mg/dL Total Bilirubin 0.4 (0.2-1.3) mg/dL AST 32 (14-36) IU/L ALT 34 (<35) IU/L Alkaline Phosphatase 74 (38-126) U/L Total Protein 7.6 (6.3-8.2) g/dL Albumin 4.5 (3.5-5.0) g/dL Globulin 3.1 (1.7-4.1) g/dL Albumin/Globulin Ratio 1.5 (1.0-2.8) Lipase 91 (23-300) U/L Urine RBC 0-1/hpf (0-5/HPF) Urine WBC 0-1/hpf (0-5/HPF) Urine Bacteria None seen (None) Ur Culture Indicated? Specimen cultured Point of care testing: Urine Dip Bedside Urine Glucose Negative Bedside Urine Bilirubin - Negative Bedside Urine Ketone - Negative Urine Specific [place] 1.020 Bedside Urine Occult Blood - Negative Bedside Urine pH 6.0 Bedside Urine Protein - Negative Bedside Urine Urobilinogen - Negative Bedside Urine Nitrite - Negative Bedside Urine Leukocytes - Negative Esterase Imaging Data CT scan - abdomen/pelvis: Radiologist's Impression: Diverticulitis of the cecum. Inflammatory changes adjacent to diverticulum anterior aspect of cecum. For presents right-sided diverticulitis. No new peritoneum or abscess. Appendicoliths present. No other evidence noted for acute appendicitis. ECG Data Attestation: I personally reviewed and interpreted this ECG as follows: Prior ECG tracings: not available for review Interpretation: Sinus bradycardia rate of 55 TX 156 QRS 74 and QTC 472. No acute ST elevation or depression appreciated. Patient has be would be to the reviewed T-wave. RSR in lead 3. Patient does not have any priors for comparison. MDM Narrative Medical decision making narrative: This is a 55-year-old female comes emergency department with complaint of worsening abdominal pain after completing a 10 day course of Augmentin. This is her 3rd round of Augmentin since October. Patient finished her antibiotics 3 days ago and developed worsening abdominal pain today. She is fairly uncomfortable on exam. Her labs show an increase in her white count to 14 with no other major abdominal lab changes. Patient's urine is negative for infection. Patient has generalized tenderness. Discussed with patient we discussed changing her antibiotics verses repeating imaging. After long discussion was decided to hit reimage the patient is she has had an increasing white count increasing pain with a 10 day course of oral antibiotics completed recently. CT shows right-sided diverticulitis of the cecum. Patient appears improved on recheck and she feels comfortable changing her oral antibiotics and following up outpatient. Return precautions were discussed. Discharge Plan Departure Patient Disposition: Home Clinical Impression: Diverticulitis Instructions: DI for Diverticulitis Activity Restrictions/Additional Instructions: Follow up in the next 2-3 days for recheck. Take antibiotics until completely gone. Do not drink alcohol with Flagyl or metronidazole it will make you vomit. You may take zofran 1 tablet every 6 hours as needed for nausea. Take pain medication as prescribed. This medication can make you sleepy do not drive, perform hazardous activities or make any major decisions while taking it. This medication will make you constipated please take a stool softener once to twice daily until stools are soft and regular. Prescriptions sent to [facility]. Please return for fevers greater 100.4 F, rapidly worsening abdominal pain, persistent vomiting, lightheadedness or passing out, black or bloody stools, new chest pain, shortness of breath or other new or concerning symptoms. Prescriptions: New ciprofloxacin HCl 500 mg tablet 500 mg PO BID Qty: 20 RF: 0 metronidazole [Flagyl] 500 mg tablet 500 mg PO TID Qty: 30 RF: 0 oxycodone 5 mg tablet 5 mg PO Q6H PRN (Reason: pain) Qty: 10 RF: 0 No Action ondansetron 4 mg tablet,disintegrating 4 mg PO Q6H PRN (Reason: nausea and vomiting) Qty: 14 RF: 0 omeprazole 40 mg Capsule,Delayed Release(Dr/Ec) 40 mg PO DAILY RF: 0 levothyroxine 25 mcg Tablet 25 mcg PO DAILY RF: 0 Referrals: Allegra Lucas MD [Primary Care Provider] - Stand Alone Forms: Work Release Note
--- NOTE | 2021-03-16 01:38 | DI.CT.S_ITS ---
PROCEDURE: CT ABDOMEN PELVIS W CON INDICATIONS: abdominal pain, history of diveriticulitis w/ round abx TECHNIQUE: After the administration of intravenous contrast, 5 mm thick sections acquired from the diaphragm to the symphysis. 5 mm coronal and sagittal reformats were acquired. For radiation dose reduction, the following was used: automated exposure control, adjustment of mA and/or kV according to patient size. COMPARISON: [facility], CT, CT ABDOMEN PELVIS W CON, 03/10/2021, 8:44. [facility], CT, CT ABDOMEN PELVIS W CON, 10/31/2020, 14:39. FINDINGS: Image quality: Excellent. ABDOMEN: Lung bases: Lung bases are clear. Heart size is normal. Solid organs: Liver is normal in size and enhancement. Gallbladder appears normal. Biliary system is non dilated. Pancreas enhances normally. Spleen is normal in size and enhancement. No adrenal nodules. Kidneys demonstrate normal size and enhancement, without hydronephrosis. Peritoneum and bowel: Bowel loops demonstrate normal wall thickness and caliber. No free fluid or air. Scattered diverticula containing barium or other high-density material, without inflammation, along the colon to a mild degree. Nodes and vessels: No retroperitoneal or mesenteric adenopathy by size criteria. Aorta and inferior vena cava are normal in size. Miscellaneous: No ventral hernias. PELVIS: Genitourinary: Bladder wall thickness is normal. Miscellaneous: No inguinal hernias or adenopathy. As was seen more superiorly there is mild colonic diverticulosis with a number of the diverticula containing high density material, perhaps barium. The appendix is normal in caliber without inflammation and also contains high density material. There is also a mild degree of acute diverticulitis involving the cecum. This is indicated by pericecal mild edema. No peridiverticular abscess is found. Bones: No suspicious bony lesions. No vertebral body compression fractures. IMPRESSION: Cecal diverticulitis, mild in severity, with normal visualized appendix containing high density material open (likely barium close) from the past. Scattered diverticulosis over the remainder of the colon. No abscess found. Dictated by: Haja Quintero M.D. on 03/16/2021 at 10:09 Approved by: Haja Quintero M.D. on 03/16/2021 at 10:12
[2021-03-16] MEDS: MORPHINE 4 MG/ML INJ IV (01:39)
[2021-03-16 01:45] VITALS: PULSE 59; O2SAT 98
[2021-03-16] MEDS: SODIUM CHLORIDE 0.9% 1,000 ML 150 ML IV (01:46)
[2021-03-16 01:47] VITALS: BP 139/63; PULSE 51; O2SAT 97
[2021-03-16] MEDS: metroNIDAZOLE 500 MG TABLET PO (03:25)
[2021-03-16] MEDS: CIPROFLOXACIN 250 MG TABLET 500 MG PO (03:26)
[2021-03-16] MEDS: ONDANSETRON 4 MG ODT PREPACK 1 BOTTLE MISC (03:39)
[2021-03-16 03:47] VITALS: BP 143/68; PULSE 52; RESP 18; TEMP 36.6; O2SAT 98
== END 2021-03-16 03:48 | disposition home or self-care (01) ==
PROVIDERS: Emergency Provider Emergency Medicine; Family Provider Physician Assistant; PCP Family Medicine
DX: K57.92 Diverticulitis of intestine, part unspecified, without perforation or abscess without bleeding (principal); R11.2 Nausea with vomiting, unspecified; R19.7 Diarrhea, unspecified; R10.9 Unspecified abdominal pain
CPT/HCPCS: 36415; 74177; 80053; 81003; 81015; 83690; 85025; 86140; 87086; 93005; 96361; 96374; 96375; 99284; J1885; J2270; Q9967

== ENCOUNTER → 2021-03-22 14:33 | Outpatient (CLI) | payer OTHER, SELFPAY ==
--- NOTE | 2021-03-22 14:34 | DI.US.S_ITS ---
PROCEDURE: US PELVIC COMPLETE INDICATIONS: PELVIC PAIN TECHNIQUE: Real-time scanning was performed of the pelvic organs, with image documentation. Additional endovaginal scanning was necessary due to incomplete visualization of the adnexal and endometrial structures by transabdominal scanning. COMPARISON: [facility], CT, CT ABDOMEN PELVIS W CON, 03/16/2021, 1:49. FINDINGS: Uterus: Uterus is normal in size at 4.8 x 3.2 x 3.4 cm. The endometrium measures 7.1 mm in combined thickness. Multiple small endometrial cyst largest measuring 2 mm. Ovaries: Right ovary is not visualized. Normal left ovary measuring 2.6 x 1.8 x 1.6 cm. Simple left ovarian cyst. Other: No pathologic free abdominal or pelvic fluid. IMPRESSION: 1. Multiple sub 5 mm endometrial cyst. 2. Right ovary is not visualized and simple left ovarian cyst measuring 2.6 cm. . Dictated by: Eber Marlow A Interpreted: Bull Marquez MD on 03/22/2021 at 16:51 Transcribed by: YARIEL on 03/22/2021 at 16:53 Approved by: Bull Marquez M.D. on 03/22/2021 at 17:27
== END ==
PROVIDERS: Family Provider Physician Assistant; PCP Family Medicine; Referring Provider Family Medicine; Visit Provider Family Medicine
DX: R10.2 Pelvic and perineal pain (principal); N83.292 Other ovarian cyst, left side; N85.8 Other specified noninflammatory disorders of uterus
CPT/HCPCS: 76830; 76856

== ENCOUNTER → 2021-06-07 09:22 | Outpatient (CLI) | payer OTHER, SELFPAY ==
--- NOTE | 2021-06-07 | DI.US.S_ITS ---
PROCEDURE: US PELVIC COMPLETE INDICATIONS: Endometriosis, unspecified TECHNIQUE: Real-time scanning was performed of the pelvic organs, with image documentation. Additional endovaginal scanning was necessary due to incomplete visualization of the adnexal and endometrial structures by transabdominal scanning. COMPARISON: [facility], , US PELVIC COMPLETE, 03/22/2021, 15:04. FINDINGS: Uterus: Uterus is normal in size at 6.3 x 2.7 x 2.9 cm. The endometrium measures 4 mm in combined thickness. There is an endometrial cyst seen that measures 2 mm. Ovaries: The right ovary measures 1.5 x 0.7 x 0.9 cm. The left ovary measures 2.2 x 1.3 x 1.8 cm and demonstrates a 1.8 cm cystic follicle, which previously measured up to 1.8 cm. The ovaries have a normal sonographic appearance. No adnexal masses are seen. Other: No pathologic free abdominal or pelvic fluid. The patient was unable to empty her bladder for the transvaginal images. IMPRESSION: A small endometrial cyst is seen that now measures up to 2 mm. Likely urinary retention, with the patient unable to empty her bladder for the transvaginal images. The left ovary demonstrates a cystic follicle, which is regarded to be within physiologic limits. Dictated by: Jak Alonzo M.D. on 06/07/2021 at 10:55 Approved by: Jak Alonzo M.D. on 06/07/2021 at 10:57
== END ==
PROVIDERS: Family Provider Physician Assistant; PCP Family Medicine; Referring Provider Family Medicine; Visit Provider Family Medicine
DX: N80.9 Endometriosis, unspecified (principal)
CPT/HCPCS: 76830; 76856

== ENCOUNTER → 2021-10-25 08:59 | Outpatient (CLI) | payer OTHER, SELFPAY ==
--- NOTE | 2021-10-25 | DI.US.S_ITS ---
PROCEDURE: US ABDOMEN LIMITED INDICATIONS: HEPATIC HEMANIGOMA TECHNIQUE: Real-time focused scanning was performed of the abdomen, with image documentation. COMPARISON: [facility], CT, CT ABDOMEN PELVIS W CON, 03/10/2021, 8:44. [facility], CT, CT ABDOMEN PELVIS W CON, 10/31/2020, 14:39. [facility], US, US ABDOMEN COMPLETE, 08/20/2020, 9:07. FINDINGS: Liver is normal in size. 0.9 x 1.1 x 1.1 centimeter hyperechoic lesion in the right lobe of the liver is stable compared to prior exam. Gallbladder is sonographically normal. No gallstones. Gallbladder wall measures 2.6 millimeters. No pericholecystic fluid. No sonographic Melgar sign. The biliary tree is nondilated. Common bile duct measures 5.7 millimeters. Pancreas suboptimally visualized due to bowel gas. No definite sonographic abnormality identified in the visualized portions of the pancreas. IMPRESSION: Stable examination compared to abdominal ultrasound obtained August 20, 2020. 1.1 centimeter hyperechoic lesion right lobe of the liver is stable and likely represents small hemangioma. Dictated by: Rayne Mckenzie MD, PhD on 10/25/2021 at 8:45 Approved by: Rayne Mckenzie MD, PhD on 10/25/2021 at 8:54
== END ==
PROVIDERS: Family Provider Physician Assistant; PCP Family Medicine; Referring Provider Family Medicine; Visit Provider Family Medicine
DX: D18.03 Hemangioma of intra-abdominal structures (principal)
CPT/HCPCS: 76705

== ENCOUNTER 2022-02-09 15:22 | Emergency (ER) | payer OTHER, SELFPAY ==
[2022-02-09] VITALS (15 sets, daily range): BP systolic 132–185; BP diastolic 67–90; PULSE 56–74; RESP 16–23; TEMP 36.7; O2SAT 96–98; BMI 25.4
--- NOTE | 2022-02-09 15:30 | DI.RAD.S_ITS ---
PROCEDURE: XR CHEST 1V INDICATIONS: chest pain TECHNIQUE: One view of the chest was acquired. COMPARISON: [facility], , CHEST 2 VIEW, 12/19/2007, 10:38. FINDINGS: Surgical changes and devices: None. Lungs and pleura: Calcified granulomas are noted. No pleural effusions or pneumothorax. Mediastinum: Mediastinal contours appear normal. Heart size is normal. Bones and chest wall: No suspicious bony lesions. Overlying soft tissues appear unremarkable. IMPRESSION: No acute pulmonary process. Dictated by: Madison Khan M.D. on 02/09/2022 at 15:10 Approved by: Madison Khan M.D. on 02/09/2022 at 15:10
[2022-02-09 16:08] LABS: Add Manual Diff / Slide Review NO; Basophils Absolute Auto 0 /uL (0-100); Basophils Percent Auto 0.4 % (0-2); Eosinophils Absolute Auto 100 /uL (0-450); Eosinophils Percent Auto 1.4 % (2-4); Hematocrit 42.4 % (36-46); Hemoglobin 14.3 g/dL (12.0-16.0); Lymphocytes Absolute Auto 3000 /uL (1100-4500); Mean Corpuscular HGB Conc 33.8 % (30-36); Mean Corpuscular Hemoglobin 31.2 PG (26-34); Mean Corpuscular Volume 92.4 fL (80-100); Monocytes Absolute Auto 500 /uL (0-900); Monocytes Percent Auto 6.3 % (3-14); Neutrophils Absolute Auto 3900 /uL (1500-7000); Neutrophils Percent Auto 51.9 % (50-75); Platelet Count 270 X10^3/uL (150-400); Red Blood Cell Count 4.59 X10^6/uL (4.0-5.2); Red Cell Distribution Width 13.6 % (11.6-14.8); White Blood Cell Count 7.6 X10^3/uL (4.5-11.0)
[2022-02-09 16:16] LABS: Alanine Aminotransferase 39 IU/L (<35); Albumin Globulin Ratio 1.5 (1.0-2.8); Alkaline Phosphatase 89 U/L (38-126); Aspartate Aminotransferase 46 IU/L (14-36); Bilirubin Total 0.3 mg/dL (0.2-1.3); Blood Urea Nitrogen 18 mg/dL (7-17); Calcium 9.4 mg/dL (8.4-10.2); Carbon Dioxide 34 mmol/L (22-32); Chloride 99 mmol/L (98-107); Creatine Kinase 142 U/L (30-135); Estimated Glomerular Filt Rate > 60 mL/min (>60); Globulin 3.4 g/dL (1.7-4.1); Glucose 110 mg/dL (70-100); HEMOLYSIS < 15 (0-50); Lipase 149 U/L (23-300); Magnesium 2.1 mg/dL (1.6-2.3); Potassium 4.1 mmol/L (3.4-5.1); Sodium 140 mmol/L (137-145); Total Protein 8.4 g/dL (6.3-8.2)
[2022-02-09 16:27] LABS: Troponin I < 0.012 ng/mL (0.01-0.034)
--- NOTE | 2022-02-09 17:23 | ED.CHESTPAIN ---
HPI - Chest Pain General Chief Complaint: Chest Pain Stated Complaint: Chest pains Time Seen by Provider: 02/09/22 16:42 Source: patient Mode of arrival: Ambulatory Limitations: no limitations History of Present Illness HPI narrative: The patient is a 56-year-old female with hypothyroid presenting today with chest discomfort. She said she was working at the [employer], at about 140pm side developed left-sided sharp stabbing chest pain lasted about 2 hours. She says now it is a dull ache. It is nonradiating. She denies any is change with palpation movement or exertion. She has never had pain like this before. No known coronary artery disease. She also complains of back pain is. She states that she has low left-sided lumbar pain ongoing for about 1 week. She says that started after she did a lot of work in her garden. She said she had 1 attack where she had some radiation down her leg but that has resolved. She has been taking audv-yws-bqkrkko medications and it seems to help. Back pain now is currently under control. She denies any shortness of breath or fever. Related Data Home Medications Medication Instructions Recorded Confirmed levothyroxine 25 mcg tablet 25 mcg PO DAILY 10/30/20 10/30/20 omeprazole 40 mg capsule,delayed 40 mg PO DAILY 10/30/20 10/30/20 release Previous Rx's Medication Instructions Recorded ondansetron 4 mg disintegrating 4 mg PO Q6H PRN #14 tab 10/31/20 tablet ciprofloxacin HCl 500 mg tablet 500 mg PO BID #20 tab 03/16/21 metronidazole 500 mg tablet 500 mg PO TID #30 tab 03/16/21 (Flagyl) oxycodone 5 mg tablet 5 mg PO Q6H PRN #10 tab 03/16/21 Allergies Allergy/AdvReac Type Severity Reaction Status Date / Time cephalexin Allergy Intermediate Rash Verified 10/31/20 14:06 Review of Systems Review of Systems Narrative: GENERAL: Denies chills, fatigue, malaise, fever, sweats, travel HEENT: Denies sinus pain, ear pain, sore throat, difficulty swallowing, neck pain RESPIRATORY: Denies dyspnea, cough, wheezing, hemoptysis, sputum. CARDIOVASCULAR: See HPI GASTROINTESTINAL: Denies nausea, vomiting, abdominal pain, diarrhea, constipation, melena. : Denies dysuria, frequency, incontinence, hematuria, urinary retention, flank pain. MUSCULOSKELETAL: See HPI SKIN: No rash, no erythema, no pruritus NEUROLOGIC: Denies weakness, dizziness, headache, numbness, change in speech, confusion PSYCHIATRIC: No concerning psychosocial issues. 12 point review of systems is negative except for those stated above and HPI Patient History Medical History Hypothyroidism Shoulder pain Stomach pain Wears dentures Wears glasses Social History household members: spouse Smoking Status: Never smoker alcohol intake: current Smoking Status: Never smoker alcohol intake frequency: holidays/special occasions only Substance Use Type: does not use Exam Initial Vital Signs Initial Vital Signs: Vital Signs Temperature 98.1 F 02/09/22 15:25 Pulse Rate 74 02/09/22 15:25 Respiratory Rate 18 02/09/22 15:25 Blood Pressure 185/90 H 02/09/22 15:25 Pulse Oximetry 98 02/09/22 15:25 GENERAL: Alert well-appearing 56-year-old female and in no acute distress. HEENT: Head atraumatic,EOMI, pupils reactive, face symmetric, moist mucous membranes CARDIOVASCULAR: Regular rate and rhythm without murmurs, rubs or gallops. RESPIRATORY: Breath sounds equal bilaterally, no wheezes rales or rhonchi. ABDOMEN: Soft, nontender. Normoactive bowel sounds all 4 quadrants. No guarding or rebound. EXTREMITIES: Normal range of motion, no clubbing or edema. Neurovascularly intact BACK: No vertebral tenderness no step-off tender left lumbar thoracic area no buttock pain pain reproducible palpable NEUROLOGICAL: Alert and oriented x4.Normal gait and speech. Cranial nerves II through XII grossly intact. SKIN: Warm, dry, no laceration, no petechiae, no rashes or lesions. Scores HEART Score Heart Score history: Slightly Suspicious Heart Score EKG: Normal Heart Score Age: 45-64 years old Heart Score risk factors: No known risk factors Heart Score troponin: < or = to normal limit Heart Score Total: 1 Course Orders Ordered: Discontinued Medications Aspirin (Aspirin 81 Mg Chew Tab) 324 mg PO NOW ONE Stop: 02/09/22 17:50 Last Admin: 02/09/22 18:28 Dose: 324 mg Documented by: DAVON Vital Signs Vital signs: Vital Signs - 8 hr 02/09/22 15:25 02/09/22 16:06 02/09/22 16:09 Temperature 98.1 F Pulse Rate 74 64 60 Respiratory Rate 18 18 18 Blood Pressure 185/90 H 160/81 H Pulse Oximetry 98 98 97 02/09/22 16:15 02/09/22 16:30 02/09/22 16:45 Temperature Pulse Rate 63 62 60 Respiratory Rate 17 19 16 Blood Pressure 159/82 H 157/82 H 153/76 H Pulse Oximetry 97 97 97 02/09/22 17:00 02/09/22 17:15 02/09/22 17:30 Temperature Pulse Rate 61 63 59 L Respiratory Rate 18 19 18 Blood Pressure 142/73 H 132/68 140/72 Pulse Oximetry 97 97 97 02/09/22 17:45 02/09/22 18:00 02/09/22 18:15 Temperature Pulse Rate 62 63 61 Respiratory Rate 21 20 21 Blood Pressure 148/78 H 162/83 H Pulse Oximetry 97 97 98 02/09/22 18:30 02/09/22 18:45 02/09/22 19:00 Temperature Pulse Rate 59 L 56 L 58 L Respiratory Rate 22 20 23 Blood Pressure 157/72 H 150/68 H 145/67 H Pulse Oximetry 97 97 96 MDM - Chest Pain Lab Data Result diagrams: 02/09/22 15:56 02/09/22 15:56 Labs: Lab Results 02/09/22 02/09/22 02/09/22 Range/Units 15:56 15:56 18:00 WBC 7.6 (4.5-11.0) X10^3/uL RBC 4.59 (4.0-5.2) X10^6/uL Hgb 14.3 (12.0-16.0) g/dL Hct 42.4 (36-46) % MCV 92.4 (80-100) fL MCH 31.2 (26-34) PG MCHC 33.8 (30-36) % RDW 13.6 (11.6-14.8) % Plt Count 270 (150-400) X10^3/uL Neut % (Auto) 51.9 (50-75) % Lymph % (Auto) 40.0 (25-40) % [place] % (Auto) 6.3 (3-14) % Eos % (Auto) 1.4 L (2-4) % Baso % (Auto) 0.4 (0-2) % Neut # (Auto) 3900 (9701-5228) /uL Lymph # (Auto) 3000 (3527-2846) /uL [place] # (Auto) 500 (0-900) /uL Eos # (Auto) 100 (0-450) /uL Baso # (Auto) 0 (0-100) /uL Sodium 140 (137-145) mmol/L Potassium 4.1 (3.4-5.1) mmol/L Chloride 99 (98-107) mmol/L Carbon Dioxide 34 H (22-32) mmol/L BUN 18 H (7-17) mg/dL Creatinine 0.82 (0.52-1.04) mg/dL Estimated GFR > 60 (>60) mL/min BUN/Creatinine Ratio 22.0 (6-22) Glucose 110 H (70-100) mg/dL Calcium 9.4 (8.4-10.2) mg/dL Magnesium 2.1 (1.6-2.3) mg/dL Total Bilirubin 0.3 (0.2-1.3) mg/dL AST 46 H (14-36) IU/L ALT 39 H (<35) IU/L Alkaline Phosphatase 89 (38-126) U/L Total Creatine Kinase 142 H (30-135) U/L CK-MB (CK-2) 1.40 (<2.37) ng/mL CK-MB (CK-2) Rel Index 1.0 L (1.5-5.0) % Troponin I < 0.012 < 0.012 (0.01-0.034) ng/mL Total Protein 8.4 H (6.3-8.2) g/dL Albumin 5.0 (3.5-5.0) g/dL Globulin 3.4 (1.7-4.1) g/dL Albumin/Globulin Ratio 1.5 (1.0-2.8) Lipase 149 (23-300) U/L Imaging Data Chest x-ray: Radiologist's Impression: XRay Report Signed Patient: Wendy Garcia MR#: [id number] : 1965 Acct:[id number] Age/Sex: 56 / F Date of Service: 02/09/22 Loc: ED Accession Number: [id number] ?? Procedure: XR chest 1V Ordering Provider: Janelle Gutiérrez D.O. PROCEDURE:? XR CHEST 1V ? INDICATIONS:? chest pain ? TECHNIQUE:? One view of the chest was acquired.? ? COMPARISON:? [facility], , CHEST 2 VIEW, 12/19/2007, 10:38. ? FINDINGS:? ? Surgical changes and devices:? None.? ? Lungs and pleura:? Calcified granulomas are noted.? No pleural effusions or pneumothorax. ? ? Mediastinum:? Mediastinal contours appear normal.? Heart size is normal.? ? Bones and chest wall:? No suspicious bony lesions.? Overlying soft tissues appear unremarkable.? ? IMPRESSION:? No acute pulmonary process. ? Dictated by: Madison Khan M.D. on 02/09/2022 at 15:10 ? ? ECG Data Interpretation: Normal sinus rhythm rate 68 AZ interval 164 QRS [address] changes T-wave inversion noted in V1 V2 be 3 similar to previous EKG MDM Narrative Medical decision making narrative: Patient is back pain seems to be musculoskeletal started after gardening is easily resolved with penw-goq-swohchs. Today she developed some mild chest discomfort. She has 2- troponins EKG looks similar. No further chest discomfort in the emergency department low risk heart score. Recommend outpatient follow-up and return as needed. Symptoms are not consistent with pulmonary embolism Discharge Plan Departure Patient Disposition: Home Clinical Impression: Atypical chest pain Instructions: DI for Low Back Pain Activity Restrictions/Additional Instructions: *You have been diagnosed with atypical chest pain, back *What to do: At this time blood work is overall reassuring. However he still may need stress test and echocardiogram. For your back I recommend heating pad and light stretching. *Continue to take medications as directed Tylenol 650 mg every 4-6 hours if needed for [id number] pain *Follow up with your primary care provider in 2-3 days or call [phone] *Return to ER if you should have change or worsening chest discomfort worsening back pain any loss of urine or stool or any new, worsening or concerning symptoms Prescriptions: No Action ondansetron 4 mg tablet,disintegrating 4 mg PO Q6H PRN (Reason: nausea and vomiting) Qty: 14 0RF omeprazole 40 mg Capsule,Delayed Release(Dr/Ec) 40 mg PO DAILY 0RF levothyroxine 25 mcg Tablet 25 mcg PO DAILY 0RF ciprofloxacin HCl 500 mg tablet 500 mg PO BID Qty: 20 0RF metronidazole [Flagyl] 500 mg tablet 500 mg PO TID Qty: 30 0RF oxycodone 5 mg tablet 5 mg PO Q6H PRN (Reason: pain) Qty: 10 0RF Referrals: Allegra Lucas MD [Primary Care Provider] - Stand Alone Forms: Work Release Note
[2022-02-09] MEDS: ASPIRIN 81 MG CHEW TAB 324 MG PO (18:28)
[2022-02-09 18:37] LABS: Troponin I < 0.012 ng/mL (0.01-0.034)
== END 2022-02-09 19:31 | disposition home or self-care (01) ==
PROVIDERS: Emergency Provider Emergency Medicine; Family Provider Physician Assistant; PCP Family Medicine
DX: R07.9 Chest pain, unspecified (principal)
CPT/HCPCS: 36415; 71045; 80053; 82550; 82553; 83690; 83735; 84484; 85025; 93005; 93010; 99284

== ENCOUNTER → 2022-04-27 10:24 | Outpatient (CLI) | payer OTHER, SELFPAY ==
--- NOTE | 2022-04-27 | DI.MG.S_ITS ---
BILATERAL DIGITAL SCREENING MAMMOGRAM 3D/2D WITH CAD: 04/27/2022 CLINICAL: Routine screening. Comparison is made to exams dated: 12/13/2019 mammogram, 07/06/2018 mammogram, and 05/15/2015 mammogram - [facility]. The tissue of both breasts is heterogeneously dense. This may lower the sensitivity of mammography. Current study was also evaluated with a Computer Aided Detection (CAD) system. No significant masses, calcifications, or other findings are seen in either breast. There has been no significant interval change. IMPRESSION: NEGATIVE There is no mammographic evidence of malignancy. A 1 year screening mammogram is recommended. Based on the Tyrer Cuzick model (a risk assessment model) the patient's lifetime risk is 8.4% and her 10 year risk is 2.9%. According to the ACR, ACS, and NCCN guidelines, an annual breast MRI exam along with mammogram is recommended if the patient's lifetime risk is 20% or greater. This exam was interpreted at Station ID: [id number]. NOTE: For mammograms, a report in lay terms will be sent to the patient. Approximately 15% of breast malignancies will not be visualized mammographically. In the management of a palpable breast mass, a negative mammogram must not discourage biopsy of a clinically suspicious lesion. Electronically Signed By: Royce cruz/lane:04/27/2022 17:01:34 letter sent: Normal Exam ACR BI-RADS Category 1: Negative 3341F
[2022-04-27 13:02] LABS: COVID19 -Nasal RAPID Negative (Negative)
--- NOTE | 2022-04-27 18:22 | DI.NM.S_ITS ---
DATE OF SERVICE: PROCEDURE PERFORMED: Exercise perfusion study. INDICATION: Chest pain with elevated blood pressure. RADIOPHARMACEUTICAL: 26.1 millicurie technetium-99m Myoview IV was injected at stress and 12.1 millicurie technetium-99m Myoview IV was injected at rest. CARDIAC STRESS: The patient underwent exercise perfusion study under the supervision of an attending staff. She walked on Tariq protocol for 7 minutes and 13 seconds, achieved 94 percent of target heart rate. Baseline blood pressure 148/90 mmHg. Peak blood pressure 182/92 mmHg. Maximum heart rate 153 beats per minute. Resting heart rate 73 beats per minute. BEVERLY 0 percent. 10.1 METs of workload. Baseline rhythm sinus. During stress, no convincing ischemic changes seen. No significant arrhythmias seen. The patient felt fatigue. No anginal symptoms. RAW DATA: There was breast shadow seen. GATED STUDY: Stress LV ejection fraction 86 percent without any significant wall motion abnormalities. Resting end-diastolic volume 87 mL. TID ratio 0.82, which is within normal limits. Lung/heart ratio 0.20, which is within normal limits. MYOCARDIAL PERFUSION SCAN: Stress supine, resting supine and stress prone images were compared to each other. Resting supine images reveal small size, mildly decreased perfusion of basal anterior wall, as well as distal apical anteroseptum. However, stress supine and stress prone images revealed normal myocardial perfusion. CONCLUSION: This is a normal myocardial perfusion study. Stress supine and stress prone images revealed normal myocardial perfusion. Fair exercise tolerance. Baseline blood pressure 148/90. Peak blood pressure 182/92 mmHg. No ischemic electrocardiographic changes. No significant arrhythmias. No anginal symptoms. Overall low-risk myocardial perfusion scan. Wendy Garcia - FIOR/patti/papi doc#: [id number]/job#: [id number] dd: 04/27/2022 17:18:00 dt: 04/27/2022 18:15:00 DICTATING MD/COPIES TO: Chad Stover MD COPIES MNE: ELEANOR;
== END ==
PROVIDERS: Family Provider Physician Assistant; PCP Family Medicine; Referring Provider Family Medicine; Visit Provider Family Medicine
DX: Z12.31 Encounter for screening mammogram for malignant neoplasm of breast (principal); R07.89 Other chest pain; I10 Essential (primary) hypertension; Z20.822 Contact with and (suspected) exposure to COVID-19
CPT/HCPCS: 77063; 77067; 78452; 87635; 93017; A9502

== ENCOUNTER → 2022-11-09 16:25 | Outpatient (CLI) | payer OTHER, SELFPAY ==
--- NOTE | 2022-11-09 | DI.RAD.S_ITS ---
PROCEDURE: XR THORACIC SPINE 3V INDICATIONS: Back Pain TECHNIQUE: 3 views of the thoracic spine were acquired. COMPARISON: [facility], , XR CHEST 1V, 02/09/2022, 15:53. FINDINGS: Bones: No definite acute fractures or dislocations. No suspicious bony lesions. 12 pairs of ribs are noted, and appear intact where visualized. Mild-moderate multilevel degenerative changes Soft tissues: No paravertebral stripe thickening. IMPRESSION: No definite acute thoracic spine fracture identified radiographically. If symptoms persist, follow-up radiographs and/or CT or MRI may be helpful for further evaluation. Mild-moderate multilevel degenerative changes of the thoracic spine are present. Dictated by: Kirk Kilgore M.D. on 11/09/2022 at 18:18 Approved by: Kirk Kilgore M.D. on 11/09/2022 at 18:21
== END ==
PROVIDERS: Family Provider Physician Assistant; PCP Family Medicine; Referring Provider Family Medicine; Visit Provider Family Medicine
DX: M47.814 Spondylosis without myelopathy or radiculopathy, thoracic region (principal); M54.6 Pain in thoracic spine
CPT/HCPCS: 72072

== ENCOUNTER → 2023-03-03 09:48 | Outpatient (CLI) | payer OTHER, SELFPAY ==
--- NOTE | 2023-03-03 | DI.US.S_ITS ---
PROCEDURE: US ABDOMEN LIMITED INDICATIONS: Hemangioma of intra-abdominal structures TECHNIQUE: Real-time focused scanning was performed of the abdomen, with image documentation. COMPARISON: [facility], CT, CT ABDOMEN PELVIS W CON, 03/16/2021, 1:49. [facility], US, US ABDOMEN LIMITED, 10/25/2021, 9:11. FINDINGS: The liver is normal in size and demonstrates no focal lesions. The previously seen apparent liver hemangioma is not seen on the current study, despite multiple attempts. No findings of gallstones or sludge are seen. The gallbladder wall is not thickened, measuring 3 mm or less. No specific pericholecystic fluid is seen. The sonographic Melgar sign is negative. There is no biliary dilatation, the common bile duct measures 5 mm. No significant pancreatic abnormality is seen on these images. IMPRESSION: Nonvisualization of the previously seen apparent liver hemangioma, despite multiple attempts. The liver demonstrates a normal appearance on these images. Dictated by: Jak Alonzo M.D. on 03/03/2023 at 10:18 Approved by: Jak Alonzo M.D. on 03/03/2023 at 10:19
== END ==
PROVIDERS: PCP Family Medicine; Referring Provider Family Medicine; Visit Provider Family Medicine
DX: D18.03 Hemangioma of intra-abdominal structures (principal)
CPT/HCPCS: 76705

== ENCOUNTER → 2023-12-27 13:08 | Outpatient (CLI) | payer OTHER, SELFPAY ==
--- NOTE | 2023-12-27 13:09 | DI.MG.S_ITS ---
BILATERAL DIGITAL SCREENING MAMMOGRAM 3D/2D WITH CAD: 12/27/2023 CLINICAL: Routine screening. Comparison is made to exams dated: 12/13/2019 mammogram, 04/27/2022 mammogram, 07/06/2018 mammogram, and 05/15/2015 mammogram - [facility]. Both breasts are heterogeneously dense, which may obscure small masses (category c / 51-75% glandular tissue). Current study was also evaluated with a Computer Aided Detection (CAD) system. There are benign vascular calcifications in both breasts. No significant masses, calcifications, or other findings are seen in either breast. There has been no significant interval change. IMPRESSION: BENIGN There is no mammographic evidence of malignancy. A 1 year screening mammogram is recommended. Based on the Tyrer Cuzick model (a risk assessment model) the patient's lifetime risk is 8.2% and her 10 year risk is 3.1%. According to the ACR, ACS, and NCCN guidelines, an annual breast MRI exam along with mammogram is recommended if the patient's lifetime risk is 20% or greater. This exam was interpreted at Station ID: [id number]. NOTE: For mammograms, a report in lay terms will be sent to the patient. Approximately 15% of breast malignancies will not be visualized mammographically. In the management of a palpable breast mass, a negative mammogram must not discourage biopsy of a clinically suspicious lesion. Electronically Signed By: Royce cruz/lane:12/27/2023 16:58:38 letter sent: Normal Exam ACR BI-RADS Category 2: Benign Finding(s) 3342F
== END ==
LOC: MAMMO 13:09
PROVIDERS: PCP Family Medicine; Referring Provider Family Medicine; Visit Provider Family Medicine
DX: Z12.31 Encounter for screening mammogram for malignant neoplasm of breast (principal); R92.333 Mammographic heterogeneous density, bilateral breasts
CPT/HCPCS: 77063; 77067

== ENCOUNTER → 2023-12-27 16:41 | Outpatient (CLI) | payer OTHER, SELFPAY ==
--- NOTE | 2023-12-27 16:44 | DI.RAD.S_ITS ---
PROCEDURE: XR FINGER RT MIN 2V INDICATIONS: rt thumb pain TECHNIQUE: AP hand, 2 views of the 3 finger(s) acquired. COMPARISON: None. FINDINGS: Bones: There is a small ossification adjacent to the distal 1st phalanx. Soft tissues: No suspicious soft tissue calcifications. IMPRESSION: Small ossification adjacent to the distal 1st phalanx. No priors are available for comparison. Small avulsion injury indeterminate age versus degenerative ossification. Recommend correlation to point tenderness. Dictated by: Madison Khan M.D. on 12/28/2023 at 9:30 Approved by: Madison Khan M.D. on 12/28/2023 at 9:32
== END ==
PROVIDERS: PCP Family Medicine; Referring Provider Family Medicine; Visit Provider Family Medicine
DX: Z12.31 Encounter for screening mammogram for malignant neoplasm of breast (principal); R92.333 Mammographic heterogeneous density, bilateral breasts; M79.644 Pain in right finger(s)
CPT/HCPCS: 73140; 77063; 77067

== ENCOUNTER → 2024-07-30 07:03 | Outpatient (CLI) | payer OTHER, SELFPAY ==
--- NOTE | 2024-07-30 07:04 | DI.US.S_ITS ---
PROCEDURE: US ABDOMEN LIMITED INDICATIONS: RIGHT UPPER QUADRANT ABDOMINAL PAIN TECHNIQUE: Real-time scanning was performed of the abdominal and retroperitoneal organs, with image documentation. COMPARISON: [facility], , US ABDOMEN LIMITED, 03/03/2023, 10:10. FINDINGS: Liver: Liver is normal in size and mildly increased in echogenicity. Gallbladder: No gallstones. No wall thickening. No pericholecystic edema. Negative sonographic Melgar's sign. Biliary ducts: Intrahepatic bile ducts are non-dilated. Extrahepatic bile duct caliber measures 6.1 mm. Normal is 6-7 mm or less in diameter, or 10 mm or less post-cholecystectomy. Pancreas: Visualized portions of the pancreas are sonographically normal. Pancreatic tail is not well seen. Miscellaneous: No free abdominal fluid. IMPRESSION: No cause for patient's pain is identified. Mild hepatic steatosis. Dictated by: Ludwig Childress M.D. on 07/30/2024 at 9:39 Approved by: Ludwig Childress M.D. on 07/30/2024 at 9:40
== END ==
PROVIDERS: PCP Family Medicine; Referring Provider Family Medicine; Visit Provider Family Medicine
DX: K76.0 Fatty (change of) liver, not elsewhere classified (principal); R10.11 Right upper quadrant pain
CPT/HCPCS: 76705

== ENCOUNTER → 2024-09-03 09:02 | Outpatient (CLI) | payer OTHER, SELFPAY ==
--- NOTE | 2024-09-03 09:03 | DI.CT.S_ITS ---
PROCEDURE: CT ABDOMEN PELVIS W CON INDICATIONS: Chronic Abdominal pain TECHNIQUE: After the administration of intravenous contrast, axial sections acquired from the lung bases to the pubic symphysis. Coronal and sagittal reformats were performed. For radiation dose reduction, the following was used: automated exposure control, adjustment of mA and/or kV according to patient size. COMPARISON: [facility], CT, CT ABDOMEN PELVIS W CON, 03/16/2021, 1:49. FINDINGS: Image quality: Diagnostic. Lower Chest: No significant findings. ABDOMEN: Liver: Liver is low density compared to the spleen possibly hepatic steatosis. Gallbladder: No radiopaque gallstones or wall thickening. Biliary ducts: No biliary dilation. Pancreas: No ductal dilation. Spleen: Size is within normal limits. Adrenal Glands: No adrenal nodules. Kidneys and Ureters: No hydronephrosis. No solid mass. No complex renal cystic lesion which requires follow up. Stomach and Bowel: Normal colonic caliber, without significant wall thickening. Numerous colonic diverticula are present without evidence of acute diverticulitis. The appendix is normal. Peritoneum: No abnormal intraperitoneal fluid. No free air. Ventral Wall: No significant ventral hernia. Abdominal Nodes: No retroperitoneal or mesenteric adenopathy by size criteria. Vessels: Aorta and inferior vena cava are normal in size. PELVIS: Pelvic Organs: Unremarkable. Bladder: No bladder wall thickening, accounting for underdistention. Pelvic Nodes: No enlarged lymph nodes. Miscellaneous: No inguinal hernias are seen. Bones: No aggressive osseous abnormality. IMPRESSION: Extensive colonic diverticular disease. No definite evidence for acute diverticulitis. Dictated by: Nette Gonzalez M.D. on 09/03/2024 at 11:14 Approved by: Nette Gonzalez M.D. on 09/03/2024 at 11:22
== END ==
LOC: CT 09:02
PROVIDERS: PCP Family Medicine; Referring Provider Family Medicine; Visit Provider Family Medicine
DX: K76.0 Fatty (change of) liver, not elsewhere classified (principal); K57.90 Diverticulosis of intestine, part unspecified, without perforation or abscess without bleeding; R10.9 Unspecified abdominal pain; G89.29 Other chronic pain
CPT/HCPCS: 74177; Q9967

== ENCOUNTER → 2024-11-22 07:58 | Outpatient (CLI) | payer OTHER, SELFPAY ==
--- NOTE | 2024-11-22 | DI.NM.S_ITS ---
PROCEDURE: NM HIDA WITH CCK PHARMACEUTICAL: 5.0 mCi Tc-99m mebrofenin IV; 1.5 mcg CCK IV. INDICATIONS: Right upper quadrant pain TECHNIQUE: Following intravenous administration of Tc-99m mebrofenin, sequential anterior abdominal images were obtained. To evaluate the contractile response of the gallbladder in response to Cholecystokinin (CCK), sincalide (0.02 ?g/kg) was administered by slow intravenous infusion approximately 60 minutes after the administration of the radiopharmaceutical. Sequential imaging was continued for 30 minutes after the start of CCK infusion. Gallbladder ejection fraction was calculated. COMPARISON: None. FINDINGS: Biliary scan: There is normal tracer uptake and excretion by the liver. There is normal visualization of the intrahepatic ducts, common bile duct, and gallbladder. There is normal tracer transit into the duodenum. CCK stimulation: There is absent contractile response of the gallbladder to CCK infusion. The calculated gallbladder ejection fraction is -11%; normal values are above 35%. It has been shown that any patient abdominal pain after CCK administration is related to the rate of CCK injection, rather than to any underlying gallbladder disease (Clinical Nuclear Medicine 2012; 37: 63-70. Journal of Nuclear Medicine 2014; 55: 1-9). IMPRESSION: Abnormal gallbladder ejection fraction which could be secondary to chronic cholecystitis or biliary dyskinesia. Dictated by: Rayne Mckenzie MD, PhD on 11/22/2024 at 10:53 Approved by: Rayne Mckenzie MD, PhD on 11/22/2024 at 10:55
== END ==
LOC: NUCM 07:58
PROVIDERS: PCP Family Medicine; Referring Provider Family Medicine; Visit Provider Family Medicine
DX: K82.9 Disease of gallbladder, unspecified (principal); R10.11 Right upper quadrant pain
CPT/HCPCS: 78227; A9537; J2805